=== PATIENT | female | born 1955 | race Caucasian/White ===

== ENCOUNTER 2023-07-25 15:09 | Outpatient (CLI) | payer MEDICARE, SELFPAY ==
--- NOTE | ~2023-07-25 | US_ITS ---
EXAMINATION: US carotid duplex BI DATE: 07/25/2023 15:51 INDICATION: Paresthesias of skin. TECHNIQUE: Grayscale, color Doppler, and pulsed Doppler images of the cervical carotid arteries were obtained. The degree of vessel stenosis is placed in one of the following categories: normal, <50%, 5 0-69%, >=70% but less than near-occlusion, near-occlusion, or total occlusion. Note that percent sten osis relative to normal distal artery lumen diameter is indirectly measured from velocity measurement s as described by Mir, et al. Radiology 2003; 229:340-346. COMPARISON: None. FINDINGS: RIGHT: The right common carotid artery (CCA) peak systolic velocity (PSV) is 83 cm/s. The right internal car otid artery (ICA) PSV is 71 cm/s. The right ICA end-diastolic velocity (EDV) is 35 cm/s. The right IC A/CCA PSV ratio is 0.9. Grayscale and color Doppler images yield an estimate of <50% diameter reducti on from plaque in the ICA. There is antegrade flow in the right vertebral artery. LEFT: The left CCA PSV is 94 cm/s. The left ICA PSV is 66 cm/s. The left ICA EDV is 27 cm/s. The left ICA/C CA PSV ratio is 0.7. Grayscale and color Doppler images yield an estimate of <50% diameter reduction from plaque in the ICA. There is antegrade flow in the left vertebral artery. IMPRESSION: 1. <50% stenosis in the right internal carotid artery. 2. <50% stenosis in the left internal carotid artery. Reviewed, dictated and finalized at location A. TUTOR
--- NOTE | ~2023-07-25 | US_ITS ---
EXAMINATION: US thyroid DATE: 07/25/2023 15:50 INDICATION: Nontoxic goiter TECHNIQUE: Multiple ultrasound images of the thyroid were obtained. COMPARISON: None. FINDINGS: The right thyroid lobe measures 5.0 x 1.5 x 1.7 cm. The left thyroid lobe measures 3.9 x 1.0 x 1.6 c m. 6 mm wider than tall solid hypoechoic nodule with smooth margins and without echogenic foci (TI-R ADS 4, moderately suspicious , FNA if >=1.5 cm, annual followup is >=1 cm) in the deep right thyroid lobe. There are couple additional 2-3 mm solid wider than tall hypoechoic nodules with smooth margins and with tiny internal echogenic foci (TI-RADS 5, highly suspicious , FNA if >=1.0 cm, annual follow up is >0.5 cm) in the superior right thyroid lobe and at the left side of the thyroid isthmus. There is normal echotexture, echogenicity and vascular flow throughout the remainder of the thyroid gland. IMPRESSION: 1. A few subcentimeter bilateral thyroid nodules none of which meet threshold criteria for either bio psy or ultrasound follow-up. Recommend clinical follow-up with repeat imaging if there are changes on physical exam. Reviewed, dictated and finalized at location A. ER IMPRESSION: 1. A few subcentimeter bilateral thyroid nodules none of which meet threshold c riteria for either biopsy or ultrasound follow-up. Recommend clinical follow-up with repeat imaging if there are changes on physical exam.
== END 2023-07-25 15:10 | disposition home or self-care (01) ==
LOC: ANHIMG 15:10
PROVIDERS: PCP Family Medicine; Visit Provider Nurse Practitioner Family
DX: E04.9 Nontoxic goiter, unspecified (principal); R51.9 Headache, unspecified; R20.2 Paresthesia of skin; Z82.3 Family history of stroke; E04.2 Nontoxic multinodular goiter; I65.23 Occlusion and stenosis of bilateral carotid arteries
CPT/HCPCS: 76536; 93880

== ENCOUNTER 2024-03-03 17:58 | Emergency (ER) | payer MEDICARE, SELFPAY ==
--- NOTE | 2024-03-03 18:19 | ED.URI ---
HPI - URI/Sore Throat General Chief Complaint: Upper Respiratory Infection Stated Complaint: Headache/Sore Throat/ fever/ body ache Time Seen by Provider: 03/03/24 18:56 Source: patient and RN notes reviewed Mode of arrival: ambulatory Limitations: no limitations History of Present Illness HPI Narrative: 69-year-old female presents with concern for 3 day history of headache, fever, sore throat, hoarse voice, cough, ear pain, fatigue. Reports her primary care doctor sent her benzonatate which she has been taking. She denies known sick contacts MD elicited complaint: cough and sore throat Related Data Home Medications Medication Instructions Recorded Confirmed valacyclovir 1 gram tablet 1,000 mg PO DAILY PRN fever 07/09/23 03/03/24 blisters Allergies Allergy/AdvReac Type Severity Reaction Status Date / Time sulfamethoxazole Allergy Unknown questionabl Verified 03/03/24 18:33 e trimethoprim Allergy Unknown questionabl Verified 03/03/24 18:33 e tramadol AdvReac Severe TONGUE Verified 03/03/24 18:33 SWELLING Review of Systems Review of Systems: CONSTITUTIONAL: Reports malaise, fatigue, fever. EYES: Denies visual changes, redness, or discharge. ENT: Reports rhinorrhea, congestion, otalgia and hoarse voice, sore throat. CARDIOVASCULAR: Denies chest pain, palpitations, or edema. RESPIRATORY: Reports cough. Denies dyspnea. GASTROINTESTINAL: Denies abdominal pain, nausea, vomiting, diarrhea SKIN: Denies rash or itching. MUSCULOSKELETAL: Denies myalgia. NEUROLOGIC: Reports headache. All systems reviewed & are unremarkable except as noted in HPI and below PMFSH Surgical History Surgical History H/O left mastectomy Family History Family History Father No problems noted. Mother No problems noted. Sibling No problems noted. Social History Social History Smoking status: Never smoker Second hand tobacco smoke exposure: No Alcohol intake: current Substance use: never Lack of Transportation: No Lack of Food: Never True Current Housing: I Have Housing Concerned About Future Housing: No Difficulty Paying Gas/Electric Bills: No Difficulty Paying for Meds: No Currently Unemployed: No Education: Associate Degree Difficulty w/ Childcare or Family Care: No Comments At time of signature, agree with nursing past medical, surgical, social and family history. There is no relevant family history pertinent to the presenting complaint Exam Narrative: GENERAL: Nontoxic-appearing, well-nourished, and in no acute distress. HEAD: Normocephalic EYES: PERRLA, conjunctivae clear ENT: Nares clear. Mucous membranes moist. TM pearly riley with dull light reflex bilaterally; no tragal tenderness. Oropharynx not erythematous without lesions. Tonsils not enlarged and without exudate, no drooling, no trismus, uvula midline. Hoarse voice noted NECK: Supple. No lymphadenopathy CHEST: Clear to auscultation, breath sounds equal. No wheezing, rhonchi, rales, or stridor. No respiratory distress, speaks in full sentences. Cough noted HEART: Regular rate and rhythm. No murmur heard. SKIN: Warm, dry, no rash. NEURO: Alert and oriented x3. PSYCH: Normal mood and affect Course Course Emergency Course: Patient is aware of diagnosis, understands and agrees to treatment plan. Anticipatory guidance given. Patient agrees to follow-up as directed and is aware of reasons to seek care at the emergency department. Portions of this record may have been created with voice recognition software Level of Care: Express Care Visit Vital Signs Vital signs: Reviewed. MDM - URI/Sore Throat MDM Narrative Medical decision making narrative: Differential diagnosis considered: Hughes virus, strep pharyngitis, allergic rhiniti
[2024-03-03 18:35] VITALS: BP 125/69; PULSE 91; RESP 16; TEMP 38.7; O2SAT 100
[2024-03-03 18:56] LABS: EDINFLUASCREEN Negative; EDINFLUBSCREEN Negative; EDSTREPNEGPOS1 Negative
== END 2024-03-03 19:10 | disposition home or self-care (01) ==
PROVIDERS: Emergency Provider Nurse Practitioner; PCP Family Medicine
DX: J06.9 Acute upper respiratory infection, unspecified (principal); R05.9 Cough, unspecified; R09.89 Other specified symptoms and signs involving the circulatory and respiratory systems; Z20.822 Contact with and (suspected) exposure to COVID-19; Z90.12 Acquired absence of left breast and nipple
CPT/HCPCS: 87081; 87426; 87804; 87880; 99213; G0463

== ENCOUNTER 2025-01-29 08:04 | Emergency (ER) | payer MEDICARE, SELFPAY ==
--- OUTSIDE RECORDS SUMMARY | 2025-01-29 08:08 | XMS_ITS | Encounter Summary ---
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 Name Role Phone Unavailable Primary Care Provider Unavailabl e Reason for Visit * Reason Onset Date Comments MEDICATION REFILL 10/25/2022 Encounter Details Date Type Department Care Team (Late st Contact Info) Description 10/25/2022 Refill [facility] [address] [facility] [place] [id number] Katherin Cruz MD [address] [facility] [address] [place] [address] MEDICATION REFILL Social History Tobacco Use Types Packs/Day Years Used Date Smoking Tobacco: Never Assessed Comments Unknown Sex and Gender Information Value Date Recorded Sex Assigned at Not on file Legal Sex Female 10:40 AM CDT Gender Identity Not on file Sexual Orientation Not on file documented as of this encounter Miscellaneous Notes * Telephone Encounter - Mark Garvin MA - 10/25/2022 10:16 AM CDT LV Na NV Na RTC Na Mark Garvin MA documented in this encounter Plan of Treatment Not on file documented as of this encounter Visit Diagnoses Not on filedocumented in this encounter
--- OUTSIDE RECORDS SUMMARY | 2025-01-29 08:08 | XMS_ITS | Encounter Summary ---
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 [address] [place] [address] Social History Tobacco Use Types Packs/Day Years Used Date Smoking Tobacco: Never Assessed Comments Unknown Sex and Gender Information Value Date Recorded Sex Assigned at Not on file Legal Sex Female 10:40 AM CDT Gender Identity Not on file Sexual Orientation Not on file documented as of this encounter Plan of Treatment Not on file documented as of this encounter Procedures Procedure Name Priority Date/Time Associated Diagnosis Comments DERMATOPATHOLOGY Routine 06/24/2019 12:0 0 AM [employer] INSPECTOR documented in this encounter Results * DERMATOPATHOLOGY (06/24/2019 12:00 AM [employer] INSPECTOR) Case Report Dermatopathology Report Case: [id number] Authorizing Provider: Katherin Cruz MD Collected: 06/24/2019 12:00 AM Ordering Location: [facility] Received: 06/24/2019 11:04 AM Pathologist: Karsten Francis MD Specimen: Skin, left shoulder 9 1:45 PM [employer] INSPECTOR DERMATOPATHOLOGY LABORATORY Final Diagnosis Specimen A. SKIN, left shoulder: LICHEN PLANUS-LIKE KERATOSIS (BENIGN LICHENOID KERATOSIS) (L82.1) POST-INFLAMMATORY PIGMENT ALTERATION (L81.9) 9 1:45 PM [employer] INSPECTOR DERMATOPATHOLOGY LABORATORY at [address]5 [employer] Clinical History R/O BCC, melanoma, LPLK. [place] brown papule. 1:45 PM [employer]ERS INSPECTOR DERMATOPATHOLOGY LABORATORY Gross Description Specimen A: Received is one formalin filled container labeled with the patient's name and designated left shoulder. The specimen consists of a shave measuring [id number]. Jar 0. 1:45 PM [facility] DERMAT[facility]ORATORY Microscopic Description Specimen A. SKIN, left shoulder: The epidermis is mildly acanthotic. There is a lichenoid infiltrate with vacuolar changes of basilar keratinocytes and scattered necrotic keratinocytes. Sections show abundant melanin within melanophages around the superficial vascular plexus. 1:45 PM [employer] INSPECTOR DERMATOPATHOLOGY LABORATORY Disclaimer An external and internal positive and negative controls are appropriate for the histochemical, immunohistochemical and immunofluorescence stain(s) in this case (if any), except where stated explicitly. The performance characteristics of the stain(s) cited in this report were developed and its performance characteristic determined by the Dermatopathology Laboratory at [facility], directed by Dr. Kena Francis. These tests need not be, and therefore are not, approved by the [place] Food and Drug Administration. The tests are used for clinical purposes. Billing Codes Specimen Charges Stain Charges 92209 1 1:45 PM [employer] INSPECTOR DERMATOPATHOLOGY LABORATORY Embedded Images 1:45 PM [employer] INSPECTOR DERMATOPATHOLOGY LABORATORY Pathology/Cytolog y TISSUE SPECIMEN FROM SKIN / Unknown 06/24/2019 06/24/2019 11:04 AM [employer] INSPECTOR us Katherin Cruz MD LAB - PATHOLOGY/CYTOLOGY ORD ERABLES Final Result DERMATOPATHOLOGY LABORATORY [facility] - Department of Dermatology [address] [place] [address], [address] [place] [address], [facility] [phone] documented in this encounter Visit Diagnoses Not on filedocumented in this encounter
--- OUTSIDE RECORDS SUMMARY | 2025-01-29 08:08 | XMS_ITS | Clinical Summary ---
Author Organization [facility] Address [address] [place] [address] Care Team Providers Care Multimedia Assistant Name Role Phone Marcial Ford MD Primary Care Provider [phone] Angelique Tabares MD Unavailable [phone] Allergies Active Allergy Reactions Criticality Noted Date Comments Sulfamethoxazole-Trimet hoprim Swelling,Vomiting Medium 06/10/2012 In throat and lips Medications calcium carbonate-vitam in D3 1,250mg (500mg elemental) - 5 mcg (200 units) per tablet Take 1 tablet by mouth every morning supplement Active multivitamin tabletIndicatio ns:Vitamin Deficiency Prevention Take 1 tablet by mouth every morning Active valACYclovir (VALTREX) 1 gram tablet TAKE 2 TABLETS BY MOUTH TWICE DAILY AT THE FIRST SIGN 3 Active meloxicam (MOBIC) 7.5 mg tabletIndicatio ns:Osteoarthrit is Take 1 tablet (7.5 mg total) by mouth 2 (two) times a day with meals 60 tablet 1 3 Active omeprazole (PriLOSEC) 20 mg capsule Take 1 capsule (20 mg total) by mouth daily 4 Active rosuvastatin (CRESTOR) 20 mg tablet Take 1 tablet (20 mg total) by mouth daily 4 Active Active Problems Problem Noted Date Diagnosed Date History of breast cancer 05/16/2020 Overview (05/16/2020): Added automatically from request for surgery [id number] History of bilateral breast implants 05/16/2020 Overview (05/16/2020): Added automatically from request for surgery [id number] Deformity of breast 05/16/2020 Overview (05/16/2020): Added automatically from request for surgery [id number] Osteopenia 02/01/2020 Enthesopathy of wrist and carpus 09/21/2019 Pulmonary nodule/lesion, solitary 09/21/2019 Other synovitis and tenosynovitis, unspecified h and 09/21/2019 Blood in urine 09/21/2019 Bone pain 09/21/2019 Chest wall tenderness 09/21/2019 Rib pain 09/21/2019 Acute meniscal tear of left knee 09/21/2019 Cyst of breast 09/21/2019 Disorder of shoulder 09/21/2019 Radial styloid tenosynovitis 09/21/2019 Epigastric pain 09/21/2019 Furuncle 09/21/2019 Hand joint pain 09/21/2019 Localized, primary osteoarthritis 09/21/2019 Microscopic hematuria 09/21/2019 Motion sickness 09/21/2019 Pain 09/21/2019 Chemotherapy follow-up examination 09/21/2019 Postoperative follow-up 09/21/2019 Radiotherapy follow-up 09/21/2019 Sinusitis 09/21/2019 Thickening of pleura 09/21/2019 Chest discomfort 07/29/2018 Well woman exam with routine gynecological exam 07/29/2018 Encounter for gynecological examination without abnormal finding 06/30/2018 History of malignant neoplasm of breast 03/21/20 18 Pain in lower limb 02/18/2017 Tinnitus 09/24/2016 S/P breast reconstruction 05/30/2015 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 05/28/2014 Malignant neoplasm of breast 06/11/2012 Carcinoma in situ of breast 03/31/2012 History of ductal carcinoma in situ of breast Encounters Date Type Department Care Team Description 01/25/2025 3:30 PM CDT Ancillary Procedure [facility] Obstetrical Gynecology [address] [place] [id number] Pelvic pain 01/25/2025 Results Follow-Up [facility] ([facility]) [address] [place] [id number] Zully Richards RN Surgical pathology 01/22/2025 10:14 AM CDT - 01/22/2025 11:59 PM CDT Hospital Encounter [facility] ([facility]) [address] [place] [address] Abnormal MRI, breast; History of breast cancer Discharge Disposition: Discharge to home or self care 01/22/2025 8:09 AM CDT - 01/22/2025 11:59 PM CDT Hospital Encounter [facility] ([facility]) [address] [place] [address] Abnormal MRI, breast; History of breast cancer Discharge Disposition: Discharge to home or self care 01/21/2025 Telephone [facility] ([facility]) [address] [place] [phone] Estephania Aguirre, BEV 01/08/2025 Telephone [facility] ([facility]) [address] [place] [address] Estephania Aguirre, BEV 01/08/[address] [facility] Surgery [address] [place] [address] [address] [place] [address] Kaylyn Russell NP Breast Screening MRI results 01/06/2025 6:38 AM CDT - 01/06/2025 11:59 PM CDT Hospital Encounter [facility] ([facility]) [address] [place] [address] Encounter for screening mammogram for malignant neoplasm of breast; At high risk for breast cancer Discharge Disposition: Discharge to home or self care 01/04/2025 Orders Only [facility] Obstetrical Gynecology [address] [place] [address] Angelique Tabares MD Pelvic pain (Primary Dx) 12/22/2024 Telephone [facility] Obstetrical Gynecology [address] [place] [address] Angelique Tabares MD from Last 3 Months Immunizations Immunization Administration Dates Next Due Influenza, Quadrivalent, Spl it, Intramuscular 05/27/2018,05/27/2018,05/22/2017,05/22 Influenza, Trivalent, IM (MDV) 5,04/29/2015,06/28/2014,07/15,07/15/2013 Influenza, Trivalent, Preser vative Free, Intramuscular 05/21/2017 Tdap 02/18/2019,02/18/2019 ZOSTER Recombinant 08/18/2018,04/28/2018 Surgical History Surgery Date Site/Laterality Comments MASTECTOMY Left SECTION, LOW TRANSVERSE TONSILLECTOMY BREAST SURGERY BREAST BIOPSY 01/22/2025 Right Medical History Medical History Date Comments Breast cancer (HCC) Gastric reflux GERD (gastroesophageal reflux disease) Headache PONV (postoperative nausea and vomiting) Osteopenia Family History Medical History Relation Name Comments Stroke Father No Known Problems Mother Breast cancer Sister Adenocarcinoma of breast - (Added by TW Conv) Cancer Sister Cancer Son Relation Name Status Comments Father Mother Sister Alive Son Social History Tobacco Use Types Packs/Day Years Used Date Smoking Tobacco: Never Smokeless Tobacco: Never Tobacco Cessation:Counseling Given: Not Answered Alcohol Use Standard Drinks/Week Comments Not Currently 0 (1 standard drink = 0.6 oz pur e alcohol) AUDIT-C Answer Date Recorded Q1: How often do you have a drink containing alc ohol? Monthly or less 04/03/2021 Q2: How many drinks containi ng alcohol do you have on a typical day when you are drinking? 1 or 2 04/03/2021 Frequency of Binge Drinking Not on file 03/16 Exercise Vital Sign Answer Date Recorde d On average, how many days pe r week do you engage in moderate to strenuous exercise (like a brisk walk)? 2 days 02/01/2020 On average, how many minutes do you engage in exercise at this level? 60 min 02/01/2020 Comments No Sex and Gender Information Value Date Recorded Sex Assigned at Not on file Legal Sex Female 8:29 PM CHECKOUT OPERATOR Gender Identity Female 05/02/2020 5:05 PM CDT Sexual Orientation Straight 05/02/2020 5: 05 PM CDT Obstetrics History Para Term AB IAB SAB Ectopic Multiple Livin g Live Births 3 3 3 3 3 Date Outcome GA Total Labor Labor/2nd/3rd Weight Sex Type Anes PTL Michelle A1 A5 Name Clin 1985 Term 2.807 kg (6 lb 3 oz) F CS-LT ranv Living Complications:Breech 1987 Term 2.92 kg (6 lb 7 oz) M CS-LT ranv Living Complications:Breech 1990 Term 3.033 kg (6 lb 11 oz) F CS-LT ranv Living Complications:None Last Filed Vital Signs Vital Sign Reading Time Taken Comments Blood Pressure 142/80 09/28/2022 2:12 PM CDT Pulse 93 06/17/2020 8:30 AM CHECKOUT OPERATOR Temperature 36.2 C (97.1 F) 07/18/2020 11:40 AM CHECKOUT OPERATOR Respiratory Rate 18 06/17/2020 8:30 AM CHECKOUT OPERATOR Oxygen Saturation 98% 06/17/2020 8:30 AM CHECKOUT OPERATOR Inhaled Oxygen Concentration - - Weight 56.2 kg (124 lb) 01/22/2025 8:17 AM CDT Height 162.6 cm (5' 4) 01/22/2025 8:17 AM CDT Body Mass Index 21.28 01/22/2025 8:17 AM CDT Plan of Treatment Health Maintenance Due Date Last Done Comments Colon Cancer Screening-Colonoscopy 1955 Depression Screening 1955 Hepatitis C Screening 1955 Hepatitis B Screening 02/15/1974 Pneumococcal vaccine 65+ (1 of 1 - PCV) 02/15/2006 Fall Risk Assessment 06/17/2021 06/17/2020 Well Visit 65+ 09/29/2023 09/28/2022, 03/16, 02/01/2020, Additional history exists Osteoporosis Screening-Bone Density Scan 10/05/2024 10/05/2022, 05/11/2020, 08/22/2018, Additional history exists Influenza Vaccine (#1) 2025 8, 05/27/2018, 05/22/2017, Additional history exists Breast Cancer Screening-Mammogram 06/24/2025 06/24/2024, 06/10/2023, 05/29/2022, Additional history exists DTaP/Tdap/Td Vaccine (3 - Td or Tdap) 02/18/2029 02/18/2019, 02/18/2019 Zoster Vaccine Completed 08/18/2018, 04/28/2018 Medical Devices Implanted Type Area Consulting Psychologist Device Identifier Shelf Expiration Date Model / Serial / Lot [employer] Ssm-310 Natrelle Inspira Smooth Shell Surface Moderate Profile Implant Latex Free - [id number] - [id number] Implanted:Qty: 1 on 06/17/2020 by Krystle Corea MD at [facility] Breast Left: Breast [employer] 10/30/2023 SSM-310 / [id number] / Rt Shoulder Pinning Implanted:01/14 (Quantity not on file) Right: Shoulder [employer] Trimark Mri Guided Rigid Deployment Device Cork Marker Breast Trimark Td 13-Mr - [id number] Implanted:Qty: 1 on 01/22/2025 at [facility] Right: Breast [employer] [id number] 02/11/2026 TRIMARK TD 13-MR / / [id number] Explanted Type Area Consulting Psychologist Device Identifier Shelf Expiration Date Model / Serial / Lot Breast Explanted:Qty: 1 on 06/17/2020 by Krystle Corea MD at [facility] Breast Left: Breast [employer] / [id number] / [id number] Procedures Procedure Name Priority Date/Time Associated Diagnosis Comments CAMERON POST CLIP PLACEMENT RIGHT Schedule Routine, Read Routine (OP Routine) 01/22/2025 10:28 AM CDT Abnormal MRI, breast History of breast cancer MRI GUIDED BREAST BIOPSY RIGHT Schedule Routine, Read Routine (OP Routine) 01/22/2025 10:06 AM CDT Abnormal MRI, breast History of breast cancer SURGICAL PATHOLOGY Routine 01/22/2025 9:46 AM CDT Abnormal MRI, breast History of breast cancer MRI BREAST BILATERAL W WO CONTRAST Schedule Routine, Read Routine (OP Routine) 01/06/2025 7:39 AM CDT Encounter for screening mammogram for malignant neoplasm of breast At high risk for breast cancer SCREENING MAMMOGRAM RIGHT W CAMERON UNILATERAL ONLY Schedule Routine, Read Routine (OP Routine) 06/24/2024 11:41 AM CHECKOUT OPERATOR Encounter for screening mammogram for malignant neoplasm of breast History of malignant neoplasm of breast DEXA AXIAL SKELETON BONE DENSITY 1 OR MORE SITES Schedule Routine, Read Routine (OP Routine) 10/05/2022 3:31 PM CDT Osteopenia, unspecified location Unspecified menopausal and perimenopausal disorder from Last 3 Months or Most Recently Relevant to Health Maintenance Results * Cameron Post Clip Placement Right (01/22/2025 10:28 AM CDT) Anatomical Region Laterality Modality Breast Right Mammography 01/22/2025 2:15 PM CDT Addenda Addendum by Mandi Nieves MD on 01/25/2025 3:45 PM CDT ADDENDUM: Pathology from biopsy of the right breast showed breast tissue with prominent vasculature and organizing hemorrhage; please refer to pathology report for details. Pathology is benign and concordant. Normal interval screening mammography is recommended. Results and recommendations will be discussed with the patient by [facility] or referring provider staff and will be separately documented in the medical record. Electronically signed by: Mandi Nieves M.D. Impressions 01/22/2025 3:39 PM CDT Successful vacuum-assisted core needle biopsy of RIGHT breast utilizing MRI guidance. Pathology is pending. ASSESSMENT: Post Procedure Mammograms for Marker Placement Dictated by: Yariel Sylvester M.D. The radiology attending physician has personally reviewed this study, and had reviewed and/or edited this written report and agrees with it. Electronically signed by: Mandi Nieves M.D. Narrative 01/22/2025 3:39 PM CDT EXAMINATION: RIGHT BREAST VACUUM-ASSISTED CORE BIOPSY UTILIZING MRI GUIDANCE, ONE LESION/SITE; PLACEMENT OF A BIOPSY TISSUE MARKER CLIP; AND RIGHT UNILATERAL FULL FIELD DIGITAL POST-PROCEDURE MAMMOGRAM WITH TOMOSYNTHESIS HISTORY: Abnormal breast MRI. 69-year-old woman with history of left-sided breast cancer status post mastectomy with RIGHT breast non-mass enhancement for which MRI guided biopsy is recommended. MR guided core needle biopsy is requested to evaluate for malignancy. COMPARISON: Breast MRI dated 01/06/2025 CONTRAST: Gadoterate meglumine, 10 ml BREAST PARENCHYMAL COMPOSITION: There are scattered areas of fibroglandular density. PROCEDURE AND FINDINGS: The risks, potential benefits, and reasonable alternatives of the procedure were discussed with the patient. Her questions were answered, and written informed consent was obtained. The patient was placed in the prone position on the MRI table. After sterile preparation of the skin, the breast was placed in a compression grid. Magnetic resonance imaging was performed with a dedicated breast imaging coil before and after intravenous administration of gadolinium, from which subtracted images were obtained. 1% lidocaine and 2% lidocaine with epinephrine were utilized for local anesthesia and hemostasis about the biopsy site. A small skin incision was made with a #11 scalpel blade. A 9 gauge Suros introducer needle and sheath were then advanced through the skin incision to the target lesion from a lateral approach utilizing MR guidance. Additional magnetic resonance images were obtained to confirm appropriate sheath positioning. Subsequently, a 9 gauge Suros vacuum assisted biopsy needle was advanced through the sheath and a total of 6 tissue cores were obtained. Post biopsy magnetic resonance images confirm biopsy site changes in the expected position. A TriMark cork-shaped tissue marker clip was then placed at the biopsy site. The sheath was removed and hemostasis was achieved. Dermabond and an ice pack were applied. There was no evidence of significant immediate complication. The patient was given verbal as well as written post procedural instructions prior to release from the department. The tissue cores were submitted in formalin to surgical pathology for histologic analysis. A RIGHT unilateral two-view full field digital mammogram with digital breast tomosynthesis was obtained post procedure and this demonstrates that the tissue marker clip is in the expected position. The attending radiologist, Dr. Mandi Nieves M.D., was present throughout the entire procedure. Dr. Nielson (breast imaging fellow) and Dr. Yariel Sylvester MD (diagnostic student affairs vice president) also participated in this examination. us Kaylyn Russell PSYCHOLOGY PROFESSOR IMG MAMMO PROCEDURES Ed ited Result - Final * MRI Guided Breast Biopsy Right (01/22/2025 10:06 AM CDT) Anatomical Region Laterality Modality Breast Right Magnetic Resonan ce 01/22/2025 1:48 PM CDT Addenda Addendum by Mandi Nieves MD on 01/25/2025 3:45 PM CDT ADDENDUM: Pathology from biopsy of the right breast showed breast tissue with prominent vasculature and organizing hemorrhage; please refer to pathology report for details. Pathology is benign and concordant. Normal interval screening mammography is recommended. Results and recommendations will be discussed with the patient by [facility] or referring provider staff and will be separately documented in the medical record. Electronically signed by: Mandi Nieves M.D. Impressions 01/22/2025 3:39 PM CDT Successful vacuum-assisted core needle biopsy of RIGHT breast utilizing MRI guidance. Pathology is pending. ASSESSMENT: Post Procedure Mammograms for Marker Placement Dictated by: Yariel Sylvester M.D. The radiology attending physician has personally reviewed this study, and had reviewed and/or edited this written report and agrees with it. Electronically signed by: Mandi Nieves M.D. Narrative 01/22/2025 3:39 PM CDT EXAMINATION: RIGHT BREAST VACUUM-ASSISTED CORE BIOPSY UTILIZING MRI GUIDANCE, ONE LESION/SITE; PLACEMENT OF A BIOPSY TISSUE MARKER CLIP; AND RIGHT UNILATERAL FULL FIELD DIGITAL POST-PROCEDURE MAMMOGRAM WITH TOMOSYNTHESIS HISTORY: Abnormal breast MRI. 69-year-old woman with history of left-sided breast cancer status post mastectomy with RIGHT breast non-mass enhancement for which MRI guided biopsy is recommended. MR guided core needle biopsy is requested to evaluate for malignancy. COMPARISON: Breast MRI dated 01/06/2025 CONTRAST: Gadoterate meglumine, 10 ml BREAST PARENCHYMAL COMPOSITION: There are scattered areas of fibroglandular density. PROCEDURE AND FINDINGS: The risks, potential benefits, and reasonable alternatives of the procedure were discussed with the patient. Her questions were answered, and written informed consent was obtained. The patient was placed in the prone position on the MRI table. After sterile preparation of the skin, the breast was placed in a compression grid. Magnetic resonance imaging was performed with a dedicated breast imaging coil before and after intravenous administration of gadolinium, from which subtracted images were obtained. 1% lidocaine and 2% lidocaine with epinephrine were utilized for local anesthesia and hemostasis about the biopsy site. A small skin incision was made with a #11 scalpel blade. A 9 gauge Suros introducer needle and sheath were then advanced through the skin incision to the target lesion from a lateral approach utilizing MR guidance. Additional magnetic resonance images were obtained to confirm appropriate sheath positioning. Subsequently, a 9 gauge Suros vacuum assisted biopsy needle was advanced through the sheath and a total of 6 tissue cores were obtained. Post biopsy magnetic resonance images confirm biopsy site changes in the expected position. A TriMark cork-shaped tissue marker clip was then placed at the biopsy site. The sheath was removed and hemostasis was achieved. Dermabond and an ice pack were applied. There was no evidence of significant immediate complication. The patient was given verbal as well as written post procedural instructions prior to release from the department. The tissue cores were submitted in formalin to surgical pathology for histologic analysis. A RIGHT unilateral two-view full field digital mammogram with digital breast tomosynthesis was obtained post procedure and this demonstrates that the tissue marker clip is in the expected position. The attending radiologist, Dr. Mandi Nieves M.D., was present throughout the entire procedure. Dr. Nielson (breast imaging fellow) and Dr. Yariel Sylvester MD (diagnostic student affairs vice president) also participated in this examination. Kaylyn Russell PSYCHOLOGY PROFESSOR [facility] MRI PROCEDURES Edit ed Result - Final * Surgical pathology (01/22/2025 9:46 AM CDT) Tissue (Breast biopsy, needle core) 01/22/2025 9:46 AM CDT Narrative PATHOLOGY [facility] - 01/25/2025 1:01 PM CDT EPIC results best viewed via link to PDF [facility] Delia Mota Laboratory of Surgical Pathology [place] [address] Note to Patients: This report may contain a detailed description of human tissue sent by a health care provider to the laboratory for pathologic evaluation. The content of this report is essential for diagnosis and may provide important critical findings. This information may be unfamiliar to patients to review without a medical professional present. It is advised that the patient review this report in the presence of a health care provider who can answer questions and explain the details. SURGICAL PATHOLOGY REPORT FINAL Patient Name: ANA LUISA PAINTING Gender: F : 1955 (Age: 69) Address: [address] [place] [id number] Hospital #: [id number] Taken:01/22/2025 Received:01/22/2025 Reported: 01/25/2025 Patient Type: [facility] Ancillary Service: UNKNOWN Location: Physician(s): CHINA Lewis Marcial Ping Perla M.D. Diagnosis: Breast, right, central upper, MRI-guided biopsy - Breast tissue with prominent vasculature and organizing hemorrhage - No atypical or malignant findings [facility]/01/24/2025 11:54 By this signature, I attest that the above diagnosis is based upon my personal examination of the slides(and/or other material indicated in the diagnosis). Ko Ford M.D. Report Electronically Reviewed and Signed Out By Ko Ford M.D. 01/25/2025 13:01:33 Marcella Triana M.D. History: The patient is a 69-year-old woman presenting for abnormal MRI, breast and history of breast cancer. Operative procedure: Right breast MRI biopsy BI-RADS 4B. Specimen(s) Received: A: Right breast MRI biopsy right central upper NME BIRAD 4B Gross Description: Received in formalin, labeled with the patient s identifiers and right breast MRI biopsy right central upper NME BI-RADS 4B are 12 yellow-red cores of fibrofatty tissue measuring 1.2 to 2.4 cm in length by 0.5 cm in diameter. Labeled A1 to A6. Jar 0. Placed in formalin immediately after collection. Total fixation time= 8.0 hours. [facility]/01/22/2025 11:50 PA(s): Sheila Garcia By this signature, I attest that the above diagnosis is based upon my personal examination of the slides(and/or other material). Addenda/Procedures The performance characteristics of some immunohistochemical stains, fluorescence in-situ hybridization tests and immunophenotyping by flow cytometry cited in this report (if any) were determined by the Surgical Pathology and Flow Cytometry Departments at [facility] as part of an ongoing quality assurance associate program and in compliance with federally mandated regulations drawn from the Clinical Laboratory Improvement Act of 1988 (CLIA '88). Some of these tests rely on the use of analyte specific reagents and are subject to specific labeling requirements by the US Food and Drug Administration. Such diagnostic tests may only be performed in a facility that is certified by the Department of Health and Human Services as a high complexity laboratory under CLIA '88. The FDA has determined that such clearance or approval is not necessary. This test is used for clinical purposes. It should not be regarded as investigational or for research. Nevertheless, federal rules concerning the medical use of analyte specific reagents require that the following disclaimer be attached to the report: This test was developed and its performance characteristics determined by the Surgical Pathology and Flow Cytometry Departments of [facility]. It has not been cleared or approved by the U. S. Food and Drug Administration. IMAGES AND SCANNED DOCUMENTS, IF INCLUDED, ONLY VIEWABLE IN PDF VERSION OF REPORT Kaylyn Russell NP LAB PATHOLOGY ORDERABLE S Final Result PATHOLOGY [facility] 3rd Floor [place], [place] [phone] * (ABNORMAL) MRI Breast Bilateral W WO Contrast (01/06/2025 7:39 AM CDT) Anatomical Region Laterality Modality Breast Bilateral Magnetic Resonan ce 01/06/2025 11:5 6 AM CDT Impressions 01/06/2025 2:24 PM CDT 1. Clumped mass and non-mass enhancement throughout the right breast spanning approximately 5 cm in craniocaudal dimension. The findings are of moderate suspicion for malignancy and MRI guided biopsy is recommended (targeting the most masslike 1.6 cm area in the upper slightly inner right breast). 2. Postsurgical changes of left mastectomy with intact silicone implant reconstruction. The method of initial detection of finding was screening MRI (Smri). OVERALL FINAL ASSESSMENT: SUSPICIOUS. BI-RADS Category 4B: Moderate suspicion for malignancy. RECOMMENDATION: MRI-guided biopsy of right breast clumped mass and non-mass enhancement, targeting the most masslike area in the upper slightly inner right breast (F- 2.1). Dictated by: Mattie Tejada M.D. The radiology attending physician has personally reviewed this study, and had reviewed and/or edited this written report and agrees with it. Electronically signed by: Geni Baptiste M.D. Narrative 01/06/2025 2:24 PM CDT EXAMINATION: 1. MRI EXAMINATION OF THE BREASTS WITH AND WITHOUT CONTRAST 2. 3D POST PROCESSING ON A DEDICATED 3D WORKSTATION HISTORY: High-risk Screening. 69-year-old woman with history of left breast ductal carcinoma in situ status post left mastectomy in 2012. She also had right excisional biopsy for papilloma in 2012. TECHNIQUE: MRI examination of the breasts per breast tumor protocol with and without gadolinium contrast. A dedicated breast imaging coil was used. The images were transferred to a breast CAD system for 3D post processing and contrast kinetics analysis. CONTRAST: Gadoterate meglumine, 10 ml COMPARISON: Multiple prior breast MRI, most recent dated 124. 06/24/2024 bilateral mammogram. BREAST COMPOSITION: Scattered fibroglandular tissue BACKGROUND PARENCHYMAL ENHANCEMENT: Mild FINDINGS: LEFT: There are postsurgical changes of left mastectomy with intact silicone implant reconstruction. There is no suspicious enhancement in the reconstructed left breast. RIGHT: There is clumped mass and non-mass enhancement throughout the right breast spanning approximately 5.0 cm in craniocaudal dimension. The most masslike component is in the upper slightly inner right breast measuring approximately 1.2 cm anteroposterior by 1.6 cm transverse by 1.6 cm craniocaudal (F- 2.1). There are postsurgical changes of prior benign right breast excisional biopsy. No abnormally enlarged lymph nodes are identified in the visualized portions of either axilla. Negar Delgado NP IM MRI PROCEDURES Final Resul t * Screening Mammogram Right W Cameron Unilateral Only (06/24/2024 11:41 AM CHECKOUT OPERATOR) Anatomical Region Laterality Modality Breast Right Mammography Narrative 06/25/2024 11:39 AM CHECKOUT OPERATOR Mammogram Technique: Right Breast Digital Breast Tomosynthesis, Unilateral C-view 2D Screening mammogram. Views obtained: right craniocaudal and right mediolateral oblique. Computer Aided Detection was performed. Mammogram Findings: The present examination has been compared to prior imaging studies performed at [facility] on 05/23/2021, 05/29/2022 and 06/10/2023. There are scattered areas of fibroglandular density. There is no suspicious abnormality in the right breast. There are no significant changes from the prior study. Patient status post contralateral mastectomy for personal history of breast cancer. Impression: There is no mammographic evidence of malignancy. Annual screening mammography is recommended. OVERALL FINAL ASSESSMENT: BI-RADS CATEGORY 1: Negative. Procedure Note Geni Baptiste MD - 06/25/2024 Mammogram Technique: Right Breast Digital Breast Tomosynthesis, Unilateral C-view 2DScreening mammogram. Views obtained: right craniocaudal and right mediolateral oblique. Computer Aided Detection was performed. Mammogram Findings: The present examination has been compared to prior imaging studies performed at [facility] on 05/23/2021, 05/29/2022 and 06/10/2023. There are scattered areas of fibroglandular density. There is no suspicious abnormality in the right breast. There are no significant changes from the prior study. Patient status post contralateral mastectomy for personal history ofbreast cancer. Impression: There is no mammographic evidence of malignancy. Annual screening mammography is recommended. OVERALL FINAL ASSESSMENT: BI-RADS CATEGORY 1: Negative. Carol Douglas NP IMG MAMMO PROCEDURES Fin al Result * Dexa Axial Skeleton Bone Density 1 Or 2 Site (10/05/2022 3:31 PM CDT) Anatomical Region Laterality Modality Body N/A Mammography 10/06/2022 10:2 5 AM CDT Narrative 10/06/2022 10:26 AM CDT EXAM DESCRIPTION: DEXA AXIAL SKELETON BONE DENSITY 1 OR MORE SITES REASON FOR STUDY: 67 y/o year old F with given history of screening. Postmenopausal Consulting Psychologist/Model: MyEdu A (S/N [id number]) CLINICAL INFORMATION: Current height: 64 inches Maximum height: 64.5 inches Weight: 127 pounds Risk factors: Postmenopausal COMPARISON: None available FINDINGS: AP LUMBAR SPINE L1-L4: Total BMD is 0.826 g/cm2 T-score is -2.0 LEFT HIP: Total BMD is 0.802 g/cm2 T-score is -1.2 Femoral neck BMD is 0.730 g/cm2 T-score is -1.1 FRAX: 10 year risk for a major osteoporotic fracture is 7.8 %, 10 year risk for a hip fracture is 0.7 % IMPRESSION: Low Bone Mass. REFERENCE: Bone mineral density: Normal (T-score above or = -1.0) Low bone mass (T-score between -1.0 and -2.5) replaces the previously used term osteopenia Osteoporosis (T-score = or below -2.5) Medical evaluation for secondary causes of low bone mineral density may be appropriate. FRAX is a World Health Organization validated fracture risk assessment tool that calculates a person's 10 year probability of a major osteoporosis related fracture and hip fracture. According to the National Osteoporosis Foundation guidelines, postmenopausal women and men age 50 or older with low bone mass and a 10 year probability of a major osteoporosis related fracture = or greater than 20% or a 10 year probability of a hip fracture = or greater than 3% should be considered for treatment. For further information, including treatment recommendations, please refer to the 2013 ISCD Official Positions (http://www.iscd.org) and the NOF's Clinician's Guide to Prevention and Treatment of Osteoporosis (http://www.nof.org/professionals/clinical-guidelines) THIS IS AN ELECTRONICALLY VERIFIED FINAL REPORT 10/06/2022 10:26 AM - Electronically signed by Felipe Montana M.D. MF: [place] Report ID: [id number] Reading Location: [id number] [facility] Note Felipe Montana MD - 10/06/2022 EXAM DESCRIPTION: DEXA AXIAL SKELETON BONE DENSITY 1 OR MORE SITES REASON FOR STUDY: 67 y/o year old F with given history of screening. Postmenopausal Consulting Psychologist/Model: MyEdu A (S/N [id number]) CLINICAL INFORMATION: Current height: 64 inches Maximum height: 64.5 inches Weight: 127 pounds Risk factors: Postmenopausal COMPARISON: None available FINDINGS: AP LUMBAR SPINE L1-L4: Total BMD is 0.826 g/cm2 T-score is -2.0 LEFT HIP: Total BMD is 0.802 g/cm2 T-score is -1.2 Femoral neck BMD is 0.730 g/cm2 T-score is -1.1 FRAX: 10 year risk for a major osteoporotic fracture is 7.8 %, 10 year risk fora hip fracture is 0.7 % IMPRESSION: Low Bone Mass. REFERENCE: Bone mineral density: Normal (T-score above or = -1.0) Low bone mass (T-score between -1.0 and -2.5) replaces thepreviously used term osteopenia Osteoporosis (T-score = or below -2.5) Medical evaluation for secondary causes of low bone mineral density may be appropriate. FRAX is a World Health Organization validated fracture risk assessmenttool that calculates a person's 10 year probability of a major osteoporosisrelated fracture and hip fracture. According to the National OsteoporosisFoundation guidelines, postmenopausal women and men age 50 or older with low bonemass and a 10 year probability of a major osteoporosis related fracture = or greater than 20% or a 10 year probability of a hip fracture = or greaterthan 3% should be considered for treatment. For further information, including treatment recommendations, please referto the 2013 ISCD Official Positions (http://www.iscd.org) and the NOF's Clinician's Guide to Prevention and Treatment of Osteoporosis (http://www.nof.org/professionals/clinical-guidelines) THIS IS AN ELECTRONICALLY VERIFIED FINAL REPORT 10/06/2022 10:26 AM - Electronically signed by Felipe Montana M.D. MF: [place] Report ID: [id number] Reading Location: [place] [address] Angelique Tabares MD IM DXA PROCEDURES Final Result from Last 3 Months or Most Recently Relevant to Health Maintenance Insurance [facility] OPEN ACCESS MEDICARE AAR MEDICARE [facility] MEDICARE AARP Care Teams Multimedia Assistant Relationship Specialty Start Date End Date Marcial Ford MD PCP - General 07/29/20 Angelique Tabares MD [address] [place] [id number] Physical Medicine Teacher Obstetrics and Gynecology 10/05/22
--- OUTSIDE RECORDS SUMMARY | 2025-01-29 08:08 | XMS_ITS | Encounter Summary ---
Author Organization [facility] Address [address] [facility] [place] [address] Care Team Providers Care Market Development Executive Name Role Phone Unavailable Primary Care Provider Unavailabl e Reason for Visit * Reason Onset Date Comments MEDICATION REFILL 11/08/2022 Encounter Details Date Type Department Care Team (Late st Contact Info) Description 11/08/2022 Refill [facility] Dermatology [address] [facility], [place] [phone] Katherin Cruz MD [address] [facility] 3 [place] [address] MEDICATION REFILL Social History Tobacco Use Types Packs/Day Years Used Date Smoking Tobacco: Never Assessed Comments Unknown Sex and Gender Information Value Date Recorded Sex Assigned at Not on file Legal Sex Female 10:40 AM CDT Gender Identity Not on file Sexual Orientation Not on file documented as of this encounter Miscellaneous Notes * Telephone Encounter - Mark Garvin MA - 11/08/2022 1:16 PM CDT documented in this encounter Plan of Treatment Not on file documented as of this encounter Visit Diagnoses Not on filedocumented in this encounter
--- OUTSIDE RECORDS SUMMARY | 2025-01-29 08:08 | XMS_ITS | Referral Summary ---
Author Organization [facility] Address [address] [place] [address] Care Team Providers Care Director Independent Name Role Phone Marcial Ford MD Primary Care Provider Angelique Tabares MD Unavailable [phone] Encounters Date Type Department Care Team Description 01/25/2025 Results Follow-Up [facility] Breast [facility] [place] [facility] ([facility]) [address] [place] [phone] Zully Richards RN Surgical pathology 01/25/2025 3:30 PM CDT Ancillary Procedure [facility] Obstetrical Gynecology [address] [place] [address] [place] [phone] Pelvic pain 01/22/2025 10:14 AM CDT - 01/22/2025 11:59 PM CDT Hospital Encounter [facility] ([facility]) [address] [place] [phone] Abnormal MRI, breast; History of breast cancer Discharge Disposition: Discharge to home or self care 01/22/2025 8:09 AM CDT - 01/22/2025 11:59 PM CDT Hospital Encounter [facility] [address] [place] [phone] Abnormal MRI, breast; History of breast cancer Discharge Disposition: Discharge to home or self care 01/21/2025 Telephone [facility] ([facility]) [address] [place] [phone] Estephania Aguirre RN 01/08/2025 Telephone [facility] ([facility]) [address] [place] [phone] Estephania Aguirre RN 01/08/2025 Telephone [facility] Surgery [facility] Floor [address] [place] [address] Kaylyn Russell NP Breast Screening MRI results 01/06/2025 6:38 AM CDT - 01/06/2025 11:59 PM CDT Hospital Encounter [facility] ([facility]) [address] [place] [phone] Encounter for screening mammogram for malignant neoplasm of breast; At high risk for breast cancer Discharge Disposition: Discharge to home or self care 01/04/2025 Orders Only [facility] Obstetrical Gynecology [address] [place] [address] [place] [phone] Angelique Tabares MD Pelvic pain (Primary Dx) 12/22/2024 Telephone [facility] Obstetrical Gynecology [address] [place] [address] [place] [phone] Angelique Tabares MD from Last 3 Months Allergies Active Allergy Reactions Criticality Noted Date [...] MOUTH TWICE DAILY AT THE FIRST SIGN 04/17/202 3 Active meloxicam (MOBIC) 7.5 mg tabletIndicatio [...] (05/16/2020): Added automatically from request for surgery [id number] History of bilateral breast implants 05/16/2020 Overview (05/16/2020): Added automatically from request for surgery [id number] Deformity of breast 05/16/2020 Overview (05/16/2020): Added automatically from request for surgery [id number] Osteopenia 02/01/2020 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 Immunizations Immunization Administration Dates Next Due Influenza, Quadrivalent, Spl it, Intramuscular 05/27/2018,05/27/2018,05/22/2017,05/22 Influenza, Trivalent, IM (MDV) 5,04/29/2015,06/28/2014,07/15,07/15/2013 Influenza, Trivalent, Preser vative Free, Intramuscular 05/21/2017 Tdap 02/18/2019,02/18/2019 ZOSTER Recombinant 08/18/2018,04/28/2018 Social History Tobacco Use Types Packs/Day Years [...] on file Legal Sex Female 8:29 PM LOBBYIST Gender Identity Female 05/02/2020 5:05 PM CDT Sexual Orientation Straight 05/02/2020 5: 05 PM CDT Last Filed Vital Signs Vital Sign Reading Time Taken Comments Blood Pressure 142/80 09/28/2022 2:12 PM CDT Pulse 93 06/17/2020 8:30 AM LOBBYIST Temperature 36.2 C (97.1 F) 07/18/2020 11:40 AM LOBBYIST Respiratory Rate 18 06/17/2020 8:30 AM LOBBYIST Oxygen Saturation 98% 06/17/2020 8:30 AM LOBBYIST Inhaled Oxygen Concentration - - Weight 56.2 kg (124 lb) 01/22/2025 8:17 AM CDT Height 162.6 cm (5' 4) 01/22/2025 8:17 AM CDT Body Mass Index 21.28 01/22/2025 8:17 AM CDT Plan of Treatment Not on file Medical Devices Implanted Type Area Assistant Terminal Manager Device Identifier Shelf Expiration Date Model / Serial / Lot [employer] Ssm-310 Natrelle Inspira Smooth Shell Surface Moderate Profile Implant Latex Free - [id number] - [id number] Implanted:Qty: 1 on 06/17/2020 by Krystle Corea MD at [facility] Breast Left: Breast [employer] 10/30/2023 SSM-310 / [id number] / Rt Shoulder Pinning Implanted:01/14 (Quantity not on file) Right: Shoulder [employer] Trimark Mri Guided Rigid Deployment Device Cork Marker Breast Trimark Td 13-Mr - [id number] Implanted:Qty: 1 on 01/22/2025 at [facility] Right: Breast [employer]GRABRgic Limited Partnership [id number] 02/11/2026 TRIMARK TD 13-MR / / [id number] Explanted Type Area Assistant Terminal Manager Device Identifier Shelf Expiration Date Model / Serial / Lot Breast Explanted:Qty: 1 on 06/17/2020 by Krystle Corea MD at [facility] Breast Left: Breast Silimed / [id number] / [id number] Procedures Procedure Name Priority Date/Time Associated [...] Read Routine (OP Routine) 06/24/2024 11:41 AM LOBBYIST Encounter for screening mammogram for malignant neoplasm [...] will be discussed with the patient by [facility] or referring provider staff and will be [...] fellow) and Dr. Yariel Sylvester MD (diagnostic executive vice president and chief financial officer) also participated in this examination. us Kaylyn Russell COMPUTER MECHANIC IMG MAMMO PROCEDURES Ed ited Result - [...] will be discussed with the patient by [facility] or referring provider staff and will be [...] fellow) and Dr. Yariel Sylvester MD (diagnostic executive vice president and chief financial officer) also participated in this examination. Kaylyn Russell COMPUTER MECHANIC IM MRI PROCEDURES Edit ed Result - Final * Surgical pathology (01/22/2025 9:46 AM CDT) Tissue (Breast biopsy, needle core) 01/22/2025 9:46 AM CDT Narrative PATHOLOGY [facility] - 01/25/2025 1:01 PM CDT EPIC results best viewed via link to PDF [facility] Laboratory of Surgical Pathology [address] [place] [address] Note to Patients: This report may contain [...] Gender: F : 1955 (Age: 69) Address: [address] [place] [phone] [facility] #: [id number] Taken:01/22/2025 Received:01/22/2025 Reported: 01/25/2025 Patient Type: [facility] Ancillary Service: UNKNOWN Location: Physician(s): CHINA Lewis M.D. Diagnosis: Breast, right, central upper, MRI-guided biopsy - Breast tissue with prominent vasculature and organizing hemorrhage - No atypical or malignant findings fr/01/24/2025 11:54 By this signature, I attest that [...] after collection. Total fixation time= 8.0 hours. tonsil hospital/01/22/2025 11:50 PA(s): Sheila Garcia By this signature, I attest that the above diagnosis is based upon my personal examination of the slides(and/or other material). Addenda/Procedures The performance characteristics of some immunohistochemical stains, fluorescence in-situ hybridization tests and immunophenotyping by flow cytometry cited in this report (if any) were determined by the Surgical Pathology and Flow Cytometry Departments at [facility] as part of an ongoing corporate quality manager program and in compliance with federally mandated [...] Surgical Pathology and Flow Cytometry Departments of [facility]. It has not been cleared or approved by the U. S. Food and Drug Administration. IMAGES AND SCANNED DOCUMENTS, IF INCLUDED, ONLY VIEWABLE IN PDF VERSION OF REPORT us Kaylyn Russell NP LAB PATHOLOGY ORDERABLE S Final Result [facility] 3rd Floor [place], [place] [phone] * (ABNORMAL) MRI Breast Bilateral W WO [...] in situ status post left mastectomy in 2011. She also had right excisional biopsy for papilloma in 2011. TECHNIQUE: MRI examination of the breasts per [...] W Cameron Unilateral Only (06/24/2024 11:41 AM LOBBYIST) Anatomical Region Laterality Modality Breast Right Mammography Narrative 06/25/2024 11:39 AM LOBBYIST Mammogram Technique: Right Breast Digital Breast Tomosynthesis, Unilateral C-view 2D Screening mammogram. Views obtained: right craniocaudal and right mediolateral oblique. Computer Aided Detection was performed. Mammogram Findings: The present examination has been compared to prior imaging studies performed at [facility] on 05/23/2021, 05/29/2022 and 06/10/2023. There are [...] compared to prior imaging studies performed at [facility] on 05/23/2021, 05/29/2022 and 06/10/2023. There are [...] F with given history of screening. Postmenopausal Assistant Terminal Manager/Model: [employer] A (S/N [id number]) CLINICAL INFORMATION: Current height: 64 inches Maximum [...] Felipe Montana M.D. MF: [place] Report ID: [id number] Reading Location: [id number] [facility] Note Felipe Montana MD - 10/06/2022 EXAM DESCRIPTION: DEXA AXIAL SKELETON BONE DENSITY 1 OR MORE SITES REASON FOR STUDY: 67 y/o year old F with given history of screening. Postmenopausal Assistant Terminal Manager/Model: [employer] A (S/N [id number]) CLINICAL INFORMATION: Current height: 64 inches Maximum [...] Felipe Montana M.D. MF: [place] Report ID: [id number] Reading Location: [id number] Angelique Tabares MD IM DXA PROCEDURES Final Result from Last 3 Months or Most Recently Relevant to Health Maintenance Insurance [facility] CIG[employer] OPEN ACCESS MEDICARE [facility] MEDICARE [facility] MEDICARE [facility] Care Teams Director Independent Relationship Specialty Start Date End Date Marcial Ford MD PCP - General 07/29/20 Angelique Tabares MD [address] [place] [phone] Manager Disaster Recovery Obstetrics and Gynecology 10/05/22
--- OUTSIDE RECORDS SUMMARY | 2025-01-29 08:08 | XMS_ITS | Encounter Summary ---
Author Organization [facility] Address [address] [facility] [place] [address] Care Team Providers Care Hypnotherapist Name Role Phone Unavailable Primary Care Provider Unavailabl e Encounter Details Date Type Department Care Team (Late st Contact Info) Description 10/14/[address] [facility] Care DermPath Lab [address] [facility], [place] [phone] Katherin Cruz MD [address] [facility] 3 [place] [address] Social History Tobacco Use Types Packs/Day Years [...] Priority Date/Time Associated Diagnosis Comments DERMATOPATHOLOGY Routine 10/13/2018 12:0 0 AM CDT documented in this encounter Results * DERMATOPATHOLOGY (10/13/2018 12:00 AM CDT) Case Report Dermatopathology Report Case: [id number] Authorizing Provider: Katherin Cruz MD Collected: 10/13/2018 12:00 AM Pathologist: Eufemia Yung MD Received: 10/14/2018 06:21 AM Specimen: Skin, left buttock 9 2:20 PM CDT DERMATOPATHOLOGY LABORATORY Final Diagnosis Specimen A. SKIN, left buttock: SEBORRHEIC KERATOSIS, IRRITATED AND INFLAMED (L82.0) 9 2:20 PM CDT DERMATOPATHOLOGY LABORATORY at 1420 CDT Clinical History Cowles crusted papule ISK vs VV vs SCCIS 2:20 PM CDT DERMATOPATHOLOGY LABORATORY Gross Description Specimen A: Received is one formalin filled container labeled with the patient's name and designated left buttock. The specimen consists of a shave biopsy measuring 9x8x3 mm. Jar 0. 2:20 PM CDT DERMATOPATHOLOGY LABORATORY Microscopic Description Specimen A. SKIN, left buttock: Sections show acanthosis, papillomatosis, hyperkeratosis, and squamous eddies. There is a lymphohistiocytic infiltrate within the papillary dermis. 2:20 PM CDT DERMATOPATHOLOGY LABORATORY Disclaimer An external and internal positive and negative controls are appropriate for the histochemical, immunohistochemical and immunofluorescence stain(s) in this case (if any), except where stated explicitly. The performance characteristics of the stain(s) cited in this report were developed and its performance characteristic determined by the Dermatopathology Laboratory at [facility], directed by Dr. Kena Francis. These tests need not be, and therefore are not, approved by the [place] Food and Drug Administration. The tests are used for clinical purposes. Billing Codes Specimen Charges Stain Charges 15906 1 2:20 PM CDT DERMATOPATHOLOGY LABORATORY Embedded Images 2:20 PM CDT DERMATOPATHOLOGY LABORATORY Pathology/Cytolog y TISSUE SPECIMEN FROM SKIN / Unknown 10/13/2018 10/14/2018 6:21 AM CDT us Katherin Cruz MD LAB - PATHOLOGY/CYTOLOGY ORD ERABLES Final Result DERMATOPATHOLOGY LABORATORY [facility] - Department of Dermatology [address] [place] [address], 5th [place] [address], [facility] [phone] documented in this encounter Visit Diagnoses Not on filedocumented in this encounter
--- OUTSIDE RECORDS SUMMARY | 2025-01-29 08:08 | XMS_ITS | Clinical Summary ---
Author Organization [facility] Address [address] [place] [address] Care Team Providers Care Communication Studies Professor Name Role Phone Unavailable Primary Care Provider Unavailabl e Source Comments [email or web address],non-owned Affiliates and Associated Physician Practices is amultiple site organization consisting of ambulatory clinics and hospital sitesin [place], [place], [place] and [place]. This disclosure is being madepursuant to the Care Everywhere program and may not contain all information available regarding this patient. Last updated 18.[email or web address] Social History Tobacco Use Types Packs/Day Years Used Date Smoking Tobacco: Never Assessed Comments Unknown Sex and Gender Information Value Date Recorded Sex Assigned at Not on file Legal Sex Female 10:40 AM CDT Gender Identity Not on file Sexual Orientation Not on file Plan of Treatment Health Maintenance Due Date Last Done Comments BONE DENSITY TESTING 1955 COLOGUARD (AGES 45-75) - COL ON CA SCREENING 1955 COLON MONITORING 1956 COLONOSCOPY - COLON CA SCREENING 1956 CT COLONOGRAPHY - COLON CA SCREENING 1955 Colorectal Cancer Screening 1955 FIT - COLON CA SCREENING 1956 FLEX SIG - COLON CA SCREENING 1956 LIPID TESTING 1955 MAMMOGRAM 1955 MEDICARE AWV 12 MONTHS 1955 HEPATITIS C SCREENING 02/11/1974 DTAP/TDAP/TD VACCINES (1 - Tdap) 02/15/1975 PNEUMOCOCCAL VACCINE 50+ (1 of 1 - PCV) 02/15/2006 ZOSTER VACCINE (1 of 2) 02/15/2006 COVID-19 VACCINE (1 - 2023-2 5 season) 2024 DEPRESSION SCREENING 07/15/2024 INFLUENZA VACCINE (#1) 2025 Respiratory Syncytial Virus (RSV) Vaccine Pt: or over 60 yrs (1 - 1-dose 75+ series) 02/15/2031 HEPATITIS B VACCINE Aged Out No longe r eligible based on patient's age to complete this topic HIB VACCINE Aged Out No longer eligi ble based on patient's age to complete this topic HPV VACCINE Aged Out No longer eligi ble based on patient's age to complete this topic MENINGOCOCCAL (Group B) VACC INE SHARED DECISION-MAKING Aged Out No longer eligibl e based on patient's age to complete this topic MENINGOCOCCAL GROUPS A/C/Y/W VACCINE Aged Out No longer eligible b ased on patient's age to complete this topic Insurance MEDICARE [facility] MEDICARE [facility]
--- OUTSIDE RECORDS SUMMARY | 2025-01-29 08:08 | XMS_ITS | Encounter Summary ---
Author Organization [facility] Address [address] [place] [address] Care Team Providers Care Api Product Manager Name Role Phone Unavailable Primary Care Provider Unavailabl e Encounter Details Date Type Department Care Team (Late st Contact Info) Description 02/14/2023 Lab Requisition [facility] - DermPath Lab [address] [facility], [place] [address] Katherin Cruz MD [address] [facility] [address] [place] [address] Social History Tobacco Use Types Packs/Day Years [...] Priority Date/Time Associated Diagnosis Comments DERMATOPATHOLOGY Routine 02/14/2023 2:45 PM CDT documented in this encounter Results * DERMATOPATHOLOGY (02/14/2023 2:45 PM CDT) Case Report Dermatopathology Report Case: [id number] Authorizing Provider: Katherin Cruz MD Collected: 02/14/2023 02:45 PM Ordering Location: [facility] DermPath Lab Received: 02/15/2023 11:43 AM Pathologist: Pili Gillette MD Specimen: Skin, nose tip 1:36 PM CDT DERMATOPATHOLOGY LABORATORY Final Diagnosis Specimen A. SKIN, nose tip: BASAL CELL CARCINOMA, INFILTRATIVE PATTERN (C44.311) 1:36 PM CDT DERMATOPATHOLOGY LABORATORY at 1336 CDT Clinical History R/O BCC vs. Scar 3 1:36 PM CDT DERMATOPATHOLOGY LABORATORY Gross Description Specimen A: Received is one formalin filled container labeled with the patient's name and designated nose tip. The specimen consists of a shave biopsy measuring 3x2x1 mm. Jar 0. 1:36 PM CDT DERMATOPATHOLOGY LABORATORY Microscopic Description Specimen A. SKIN, nose tip: Within the dermis there are nodular aggregates of basaloid cells associated with fibromyxoid stroma and epithelial-stromal clefts. At the advancing margin of the neoplasm, there are smaller angulated nests that infiltrate the dermis. 3 1:36 PM CDT DERMATOPATHOLOGY LABORATORY Disclaimer An external and internal positive and negative controls are appropriate for the histochemical, immunohistochemical and immunofluorescence stain(s) in this case (if any), except where stated explicitly. The performance characteristics of the stain(s) cited in this report were developed and its performance characteristic determined by the Dermatopathology Laboratory at [facility], directed by Dr. Kena Francis. These tests need not be, and therefore are not, approved by the [place] Food and Drug Administration. The tests are used for clinical purposes. Billing Codes Specimen Charges Stain Charges 95016 1 3 1:36 PM CDT DERMATOPATHOLOGY LABORATORY Embedded Images 3 1:36 PM CDT DERMATOPATHOLOGY LABORATORY Pathology/Cytolo gy TISSUE SPECIMEN FROM SKIN / Unknown 02/14/2023 2:45 PM CDT 02/15/2023 11:43 AM CDT us Katherin Cruz MD LAB - PATHOLOGY/CYTOLOGY ORD ERABLES Final Result DERMATOPATHOLOGY LABORATORY [facility] Department of Dermatology [address], [address] [phone] documented in this encounter Visit Diagnoses Not on filedocumented in this encounter
--- OUTSIDE RECORDS SUMMARY | 2025-01-29 08:08 | XMS_ITS | Clinical Summary ---
Author Organization [facility] Address [facility] [place] [address] Care Team Providers Care Campus Interviews Intern Name Role Phone Marcial Ford MD Primary Care Provider [phone] Allergies Active Allergy Reactions Criticality Noted Date Comments Sulfamethoxazole-Trimethoprim Swelling,Vomiting 10/15/2024 Medications rosuvastatin (CRESTOR) 10 MG tablet Take 1 tablet (10 mg total) by mouth daily. 08/13/2024 Active omeprazole (PRILOSEC) 20 MG capsule Take 1 capsule (20 mg total) by mouth daily. 10/10/2024 Active Social History Tobacco Use Types Packs/Day Years Used Date Smoking Tobacco: Never Assessed Comments Unknown Sex and Gender Information Value Date Recorded Sex Assigned at Female 10/15/2024 4:38 PM CDT Legal Sex Female 5:27 PM CDT Gender Identity Not on file Sexual Orientation Not on file Last Filed Vital Signs Vital Sign Reading Time Taken Comments Blood Pressure 147/87 10/15/2024 8:00 PM CDT Pulse 67 10/15/2024 8:00 PM CDT Temperature 36.3 C (97.3 F) 10/15/2024 4:39 PM CDT Respiratory Rate 18 10/15/2024 4:39 PM CDT Oxygen Saturation 97% 10/15/2024 8:00 PM CDT Inhaled Oxygen Concentration - - Weight 57.6 kg (127 lb) 10/15/2024 4:39 PM CDT Height 162.6 cm (5' 4) 10/15/2024 4:39 PM CDT Body Mass Index 21.8 10/15/2024 4:39 PM CDT Plan of Treatment Health Maintenance Due Date Last Done Comments Colorectal Cancer Screening Colonoscopy (10 Years) 1955 Hepatitis C 02/15/1974 Annual Medicare Wellness Visit 02/15/2021 COVID-19 Vaccine ( season) 2024 03/26/2024, 04/08/2023, 03/29/2022, Additional history exists Mammogram Screening 06/24/2026 06/24/2024, 06/10/2023, 05/29/2022, Additional history exists DTaP, Tdap and Td Vaccines (2 - Td or Tdap) 02/18/2029 02/18/2019 Zoster Vaccines Completed 08/18/2018, 04/28/2018 Pneumococcal Vaccine: 50+ Years Completed 07/04/2022, 05/22/2021 Dexa Scan (General) Completed 10/05/2022, 10/05/2022, 05/11/2020, Additional history exists RSV Immunization or 60+ Years Completed 05/06/2023 Meningococcal B Vaccine Aged Out No l onger eligible based on patient's age to complete this topic Meningococcal Vaccine Aged Out No nayan júnior eligible based on patient's age to complete this topic RSV Immunizations Under 20 Months Aged Out No longer eligible based on patient's age to complete this topic Insurance MEDICARE [facility] Care Teams Campus Interviews Intern Relationship Specialty Start Date End Date Marcial Ford MD [address] [address] PCP - General FAMILY PRACTICE 10/15/24
--- OUTSIDE RECORDS SUMMARY | 2025-01-29 08:08 | XMS_ITS | Encounter Summary ---
Author Organization [facility] Address [address] [place] [address] Care Team Providers Care Rail Operations Controller Name Role Phone Unavailable Primary Care Provider Unavailabl e Encounter Details Date Type Department Care Team (Late st Contact Info) Description 02/27/2024 Lab Requisition [facility] - DermPath Lab [address] [facility] [place] [address] Katherin Cruz MD [address] [facility] [address] [place] [address] Social History Tobacco Use Types Packs/Day Years [...] Priority Date/Time Associated Diagnosis Comments DERMATOPATHOLOGY Routine 02/27/2024 8:52 AM CDT documented in this encounter Results * DERMATOPATHOLOGY (02/27/2024 8:52 AM CDT) Case Report Dermatopathology Report Case: [id number] Authorizing Provider: Katherin Cruz MD Collected: 02/27/2024 08:52 AM Ordering Location: [facility] Physician [facility] - Received: 02/28/2024 07:06 AM DermPath Lab Pathologist: Eufemia Yung MD Specimen: Skin, mid forehead 11:28 AM CDT DERMATOPATHOLOGY LABORATORY Final Diagnosis Specimen A. SKIN, mid forehead: BASAL CELL CARCINOMA, INFILTRATIVE PATTERN (C44.319) 11:28 AM CDT DERMATOPATHOLOGY LABORATORY at 1128 CDT Clinical History [place] papule r/o BCC 11:28 AM CDT DERMATOPATHOLOGY LABORATORY Gross Description Specimen A: Received is one formalin filled container labeled with the patient's name and designated mid forehead. The specimen consists of a shave biopsy measuring 4x2x1 mm. Jar 0. 11:28 AM CDT DERMATOPATHOLOGY LABORATORY Microscopic Description Specimen A. SKIN, mid forehead: Within the dermis there are nodular aggregates of basaloid cells associated with fibromyxoid stroma and epithelial-stromal clefts. At the advancing margin of the neoplasm, there are smaller angulated nests that infiltrate the dermis. 11:28 AM CDT DERMATOPATHOLOGY LABORATORY Disclaimer An external and internal positive and negative controls are appropriate for the histochemical, immunohistochemical and immunofluorescence stain(s) in this case (if any), except where stated explicitly. The performance characteristics of the stain(s) cited in this report were developed and its performance characteristic determined by the Dermatopathology Laboratory at [facility], directed by Dr. Kena Francis. These tests need not be, and therefore are not, approved by the [place] Food and Drug Administration. The tests are used for clinical purposes. Billing Codes Specimen Charges Stain Charges 83178 1 4 11:28 AM CDT DERMATOPATHOLOGY LABORATORY Embedded Images 11:28 AM CDT DERMATOPATHOLOGY LABORATORY Pathology/Cytolo gy TISSUE SPECIMEN FROM SKIN / Unknown 02/27/2024 8:52 AM CDT 02/28/2024 7:06 AM CDT us Katherin Cruz MD LAB - PATHOLOGY/CYTOLOGY ORD ERABLES Final Result DERMATOPATHOLOGY LABORATORY [facility] - Department of Dermatology [address], [address] Floor [address] [phone] documented in this encounter Visit Diagnoses Not on filedocumented in this encounter
--- NOTE | 2025-01-29 08:12 | ED_ITS ---
HPI - General Adult General Chief complaint: Wound/Laceration Stated complaint: bee sting Time Seen by Provider: 01/29/25 08:18 Source: patient, RN notes reviewed and old records reviewed Mode of arrival: ambulatory Limitations: no limitations History of Present Illness HPI narrative: 69-year-old female presents to the [facility] with concerns a bee sting to the wrist, left. States approximately 7:00 a.m. yesterday morning she was stung by the bee. Has some swelling to the wrist. Reports that she has applied ice, taken ibuprofen and 1 allergy 24 hour pill. Full range of motion is noted. Strong bariatric nurse. Positive radial pulse. Area is pink, small blisters are noted No lip or tongue swelling. No difficulty breathing. Onset (ago): day(s) (1) Related Data Home Medications ?Medication ?Instructions ?Recorded ?Confirmed ?Last Taken ?Type valacyclovir 1 gram tablet 1,000 mg PO DAILY PRN fever 07/09/23 01/25/25 Unknown History blisters Allergies Allergy/AdvReac Type Severity Reaction Status Date / Time tramadol Allergy Severe TONGUE Verified 01/29/25 08:16 SWELLING sulfamethoxazole Allergy Unknown Swelling Verified 01/29/25 08:16 of Lip/Tongue/Throat trimethoprim Allergy Unknown Swelling Verified 01/29/25 08:16 of Lip/Tongue/Throat Review of Systems 2 Review of Systems: All systems reviewed & are unremarkable except as noted in HPI and below Constitutional: Constitutional: Reports no additional constitutional complaints ENT: Reports system reviewed and no additional complaints, except as documented Cardiovascular: Cardiovascular: Reports no additional cardiovascular complaints, Denies chest pain and Denies dyspnea Respiratory: Respiratory: Reports no additional respiratory complaints, Denies chest congestion, Denies cough and Denies dyspnea Musculoskeletal: Musculoskeletal: Reports no additional musculoskeletal complaints Integumentary/Breasts: Skin/Breast: Reports as per HPI [facility] Past Medical History Medical History Screening for measles Constipation Chest pain due to GERD Seasonal allergies Surgical History Surgical History H/O left mastectomy Family History Family History Father No problems noted. Mother No problems noted. Sibling No problems noted. Social History Social History Smoking status: Never smoker Second hand tobacco smoke exposure: No Alcohol intake: current Substance use: never Substance use type: does not use Do You Feel Safe in your Home?: Yes Lack of Transportation: No Lack of Food: Never True Current Housing: I Have Housing Concerned About Future Housing: No Difficulty Paying Gas/Electric Bills: No Difficulty Paying for Meds: No Currently Unemployed: No Education: Associate Degree Difficulty w/ Childcare or Family Care: No Comments At the time of my signature, I reviewed and agree with the nursing past medical, surgical, social, and family history. There is no relevant family history pertinent to the patient complaint. Exam 2 Const: General: cooperative, healthy appearing, comfortable, no acute distress, well developed, alert and well nourished Nutritional Appearance: w ell nourished Orientation/consciousness: patient oriented x3 Limitations: no limitations HENMT: Head: normal to inspection Mouth: Yes Normal oral and palatal mucosa present, Yes lip normal, Yes tongue normal and Yes moist mucous membranes Eyes: General: appearance normal, both eyes and all related structures A lignment and Position: alignment normal Neck: Neck: normal visual inspection, full ROM, no lymphadenopathy and no meningeal signs Chest: Chest palpation & inspection: normal inspection of the chest Resp: Effort & Inspection: normal respiratory effort and able to speak in complete sentences Cardio: Rate: regular rate Skin: General skin exam: normal color and no rashes or lesions noted R ashes: rashes noted Full body images: 1. Mild swelling, pink, small blisters, insect sting. No stinger noted. Positive radial pulse. Full range of motion of the fingers, wrist and elbow. Neuro: General: patient oriented x3, gait normal, moves all extremities and no meningeal signs Cognition (Neuro): normal cognition Speech: normal speech Gait exam (Neuro): Normal gait present Extrem: General: normal to inspection, full ROM, capillary refill normal and normal gait Left upper extremity: elbow/forearm normal to inspection and normal ROM; no tenderness and no swelling, wrist swelling, normal ROM, normal vascular exam and radial pulse present; no ecchymosis and hand normal to inspection Psych: Appearance: grossly normal and well kempt Mental Status: mental status grossly normal Speech and movement: Normal speech and movement present and Clear speech present Affect: normal affect Attitude: cooperative Course Course Level of Care: Express Care Visit Vital Signs Vital signs: Vital Signs Temperature 98.6 F 01/29/25 08:15 Pulse Rate 75 01/29/25 08:15 Respiratory Rate 16 01/29/25 08:15 Blood Pressure 109/59 L 01/29/25 08:15 Pulse Oximetry 100 01/29/25 08:15 Oxygen Delivery Room Air 01/29/25 08:15 Temperature 98.6 F 01/29/25 08:15 Pulse Rate 75 01/29/25 08:15 Respiratory Rate 16 01/29/25 08:15 Blood Pressure 109/59 L 01/29/25 08:15 Pulse Oximetry 100 01/29/25 08:15 Oxygen Delivery Room Air 01/29/25 08:15 Reviewed Medical Decision Making MDM Narrative Medical decision making narrative: Patient sitting comfortably in exam room. Nontoxic, vitals stable. Patient in no acute distress Patient presents with 24 hours post bee sting. No systemic reaction. Localized reaction to a bee sting. Will prescribe prednisone, discussed [id number] treatments. Patient is appropriate for outpatient treatment with close follow-up Discharge instructions reviewed with patient, as well as provided in writing per nursing staff. The instructions also include specific and strict return/GO TO THE ER as well as f/u information. All questions have been answered, and the patient deny any further questions with discharge and discharge plan. Some parts of this dictation were generated by voice recognition software and may contain typographical and/or grammatical inaccuracies. Differential Diagnosis Differential Diagnosis: Localized reaction, allergic reaction, cellulitis Medical Records Medical records reviewed: Yes I reviewed the external patient's medical records. Vital Signs Vital Signs: Vital Signs Temperature 98.6 F 01/29/25 08:15 Pulse Rate 75 01/29/25 08:15 Respiratory Rate 16 01/29/25 08:15 Blood Pressure 109/59 L 01/29/25 08:15 Pulse Oximetry 100 01/29/25 08:15 Oxygen Delivery Room Air 01/29/25 08:15 Temperature 98.6 F 01/29/25 08:15 Pulse Rate 75 01/29/25 08:15 Respiratory Rate 16 01/29/25 08:15 Blood Pressure 109/59 L 01/29/25 08:15 Pulse Oximetry 100 01/29/25 08:15 Oxygen Delivery Room Air 01/29/25 08:15 Reviewed Lab Data Lab results reviewed: Yes I reviewed the patient's lab results. Labs: Reviewed Critical Care Time Critical Care Time Critical Care Time: No Discharge Plan Discharge Clinical Impression: Local reaction to bee sting Qualifiers: Encounter type: initial encounter Injury intent: accidental or unintentional Q ualified Code(s): T63.441A - Toxic effect of venom of bees, accidental (unintentional), initial encounter Patient Disposition: Home Condition: Stable Instructions: Insect Bite or Sting (ED) Additional Instructions: The most important part of your care is follow up with Primary care provider. Take Benadryl 25 mg every 8 hours for itching Take Zyrtec every day Take Pepcid 20mg daily for 7 days Take the steroids starting today. Take every morning Apply hydrocortisone cream Avoid hot showers, Take cool showers. Hot showers will make rashes worse Apply cool compresses every 2-3 hours for 15 minutes Go to the ER for new or worsening symptoms such as shortness of breath. Patient Language: Georgian Prescriptions: New prednisone 20 mg tablet See Rx Instructions .Route .COMPLEX Qty: 9 0RF Rx Instructions: Take 40 mg daily for 3 days, 20 mg daily for 3 days No Action epinephrine [EpiPen 2-Darrius] 0.3 mg/0.3 mL auto-injector 1 mg IM Q15M PRN (Reason: anaphylaxis) Qty: 2 0RF Rx Instructions: do not exceed 3 doses per episode valacyclovir 1 gram tablet 1,000 mg PO DAILY PRN (Reason: fever blisters) ferrous sulfate 27 mg iron tablet 27 mg PO DAILY Qty: 20 0RF ascorbate calcium (vitamin C) 500 mg tablet 500 mg PO DAILY Qty: 20 0RF rosuvastatin 10 mg tablet 10 mg PO DAILY Qty: 90 1RF famotidine 20 mg tablet 20 mg PO DAILY Qty: 30 1RF Follow-up/Referrals: Marcial Ford MD [Primary Care Provider] - 2 Weeks ([facility] ) Time of Disposition: 08:24
[2025-01-29 08:15] VITALS: BP 109/59; PULSE 75; RESP 16; TEMP 37; O2SAT 100
== END 2025-01-29 08:26 | disposition home or self-care (01) ==
PROVIDERS: Emergency Provider Nurse Practitioner; PCP Family Medicine
DX: T63.441A Toxic effect of venom of bees, accidental (unintentional), initial encounter (principal); K21.9 Gastro-esophageal reflux disease without esophagitis; Z90.12 Acquired absence of left breast and nipple
CPT/HCPCS: 99213; G0463

== ENCOUNTER 2025-03-05 08:05 | Outpatient (CLI) | payer MEDICARE, SELFPAY ==
--- OUTSIDE RECORDS SUMMARY | 2025-03-05 08:09 | XMS_ITS | Encounter Summary ---
Author Organization [facility] Address [address] [facility] [place] [address] Care Team Providers Care Statistician Applied Name Role Phone Unavailable Primary Care Provider Unavailabl e Reason for Visit * Reason Onset Date Comments MEDICATION REFILL 11/08/2022 Encounter Details Date Type Department Care Team (Late st Contact Info) Description 11/08/2022 Refill [facility] Dermatology [address] [facility] [place] [phone] Katherin Cruz MD [address] [facility] 3 [place] [address] MEDICATION REFILL Social History Tobacco Use Types [...]
--- OUTSIDE RECORDS SUMMARY | 2025-03-05 08:09 | XMS_ITS | Encounter Summary ---
Author Organization [facility] Address [address] [facility] [place] [address] Care Team Providers Care Sewer And Drain Technician Name Role Phone Unavailable Primary Care Provider Unavailabl e Encounter Details Date Type Department Care Team (Late st Contact Info) Description 10/14/2018 Lab Requisition [facility] Care DermPath Lab [address] [facility] [place] [phone] Katherin Cruz MD [address] [facility] [address] [place] [address] Social History Tobacco Use Types Packs/Day Years [...] AM CDT) Case Report Dermatopathology Report Case: [id number] Authorizing Provider: Katherin Cruz MD Collected: 10/13/2018 12:00 AM Pathologist: Eufemia Yung MD Received: 10/14/2018 06:21 AM Specimen: Skin, left buttock 9 2:20 PM CDT DERMATOPATHOLOGY LABORATORY Final Diagnosis Specimen A. SKIN, left buttock: SEBORRHEIC KERATOSIS, IRRITATED AND INFLAMED (L82.0) 9 2:20 PM CDT DERMATOPATHOLOGY LABORATORY at 1420 CDT Clinical History [place] crusted papule ISK vs VV vs SCCIS [...] characteristic determined by the Dermatopathology Laboratory at [facility], directed by Dr. Kena Francis. These tests need not be, and therefore are not, approved by the [place] Food and Drug Administration. The tests are used for clinical purposes. Billing Codes Specimen Charges Stain Charges 15762 1 2:20 PM CDT DERMATOPATHOLOGY LABORATORY Embedded Images 2:20 PM CDT DERMATOPATHOLOGY LABORATORY Pathology/Cytolog y TISSUE SPECIMEN FROM SKIN / Unknown 10/13/2018 10/14/2018 6:21 AM CDT us Katherin Cruz MD LAB - PATHOLOGY/CYTOLOGY ORD ERABLES Final Result DERMATOPATHOLOGY LABORATORY [facility] - Department of Dermatology [address] [place] [address], [address] [place] [address], [facility] [phone] documented in this encounter Visit Diagnoses Not on filedocumented in this encounter
--- OUTSIDE RECORDS SUMMARY | 2025-03-05 08:09 | XMS_ITS | Clinical Summary ---
Author Organization [facility] Address [address] [place] [address] Care Team Providers Care Visual Stylist Name Role Phone Marcial Ford MD Primary Care Provider [phone] Angelique Tabares MD Unavailable [phone] Allergies Active Allergy Reactions Criticality Noted Date Comments Sulfamethoxazole-Trimet hoprim Swelling,Vomiting Medium 06/10/2012 In throat and lips Medications calcium carbonate-sorin min D3 1,250mg (500mg elemental) - 5 mcg (200 units) per tablet Take 1 tablet by mouth every morning supplement Active multivitamin tabletIndicati ons:Vitamin Deficiency Prevention Take 1 tablet by mouth every morning Active valACYclovir (VALTREX) 1 gram tablet TAKE 2 TABLETS BY MOUTH TWICE DAILY AT THE FIRST SIGN 3 Active famotidine (PEPCID) 20 mg tablet Take 1 tablet (20 mg total) by mouth daily 5 Active predniSONE (DELTASONE) 20 mg tablet TAKE 2 TABLETS BY MOUTH DAILY FOR 3 DAYS THEN 1 TABLET DAILY FOR 3 DAYS 5 Active rosuvastatin (CRESTOR) 10 mg tablet Take 1 tablet (10 mg total) by mouth daily 5 Active finasteride (PROSCAR) 5 mg tablet Take 2.5 mg by mouth daily 5 02/06/20 25 Discontinu ed(Patient Reported) Active Problems Problem Noted Date Diagnosed Date History of breast cancer 05/16/2020 Overview (05/16/2020): Added automatically from request for surgery [id number] History of bilateral breast implants 05/16/2020 Overview (05/16/2020): Added automatically from request for surgery [id number] Deformity of breast 05/16/2020 Overview (05/16/2020): Added automatically from request for surgery [id number] Osteopenia 02/01/2020 Enthesopathy of wrist and carpus [...] Encounters Date Type Department Care Team Description 02/05/2025 Orders Only [facility] Obstetrical Gynecology [address] [place] [address] [address] [place] [address] Angelique Tabares MD Low bone mass (Primary Dx); Other specified disorders of bone density and structure, other site 02/01/2025 9:30 AM CDT Office Visit [facility] Obstetricin Gynecology [address] [place] [address] [place] [phone] Angelique Tabares MD Well woman exam with routine gynecological exam (Primary Dx); LLQ pain 01/25/2025 3:30 PM CDT Ancillary Procedure [facility] Obstetricin Gynecology [address] [place] [address] [place] [phone] Pelvic pain 01/25/2025 Results Follow-Up [facility] ([facility]) [address] [place] [address] Zully Richards RN Surgical pathology 01/22/2025 10:14 AM CDT - 01/22/2025 11:59 PM CDT Hospital Encounter [facility] ([facility]) [address] [place] [address] Abnormal MRI, breast; History of breast cancer Discharge Disposition: Discharge to home or self care 01/22/2025 8:09 AM CDT - 01/22/2025 11:59 PM CDT Hospital Encounter [facility] ([facility]) [address] [place] [address] Abnormal MRI, breast; History of breast cancer Discharge Disposition: Discharge to home or self care 01/21/2025 Telephone [facility] ([facility]) [address] [place] [address] Estephania Aguirre, BEV 01/08/2025 Telephone [facility] ([facility]) [facility] [place] [address] Estephania Aguirre RN 01/08/2025 Telephone [facility] Medicine Surgery [address] [facility] Floor [address] [place] [address] Kaylyn Russell NP Breast Screening MRI results 01/06/2025 6:38 AM CDT - 01/06/2025 11:59 PM CDT Hospital Encounter [facility] ([facility]) [address] [place] [address] Encounter for screening mammogram for malignant neoplasm of breast; At high risk for breast cancer Discharge Disposition: Discharge to home or self care 01/04/2025 Orders Only [facility] Obstetrical Gynecology [address] [facility] [address] [place] [address] Angelique Tabares MD Pelvic pain (Primary Dx) 12/22/2024 Telephone [facility] Obstetrical Gynecology [address] [place] [address] Angelique Tabares MD from Last [...] by TW Conv) Cancer Sister Cancer Son Ovarian cancer Neg Hx Uterine cancer Neg Hx Relation Name Status Comments Father Mother Sister [...] on file Legal Sex Female 8:29 PM DISABILITY INSURANCE CLAIM EXAMINER Gender Identity Female 05/02/2020 5:05 PM CDT Sexual Orientation Straight 05/02/2020 5: 05 PM CDT Obstetrics History Para Term AB IAB SAB Ectopic Multiple Livin g Live Births 3 3 3 3 3 Date Outcome GA Total Labor Labor/2nd/3rd Weight Sex Type Anes PTL Michelle A1 A5 Name Clin 1984 Term 2.807 kg (6 lb 3 oz) F CS-LT ranv Living Complications:Breech 1987 Term 2.92 kg (6 lb 7 oz) M CS-LT ranv Living Complications:Breech 1990 Term 3.033 kg (6 lb 11 oz) F CS-LT ranv Living Complications:None Comments 07/12/52 Last Filed Vital Signs Vital Sign Reading Time Taken Comments Blood Pressure 140/70 02/01/2025 9:37 AM CDT Pulse 93 06/17/2020 8:30 AM DISABILITY INSURANCE CLAIM EXAMINER Temperature 36.2 C (97.1 F) 07/18/2020 11:40 AM DISABILITY INSURANCE CLAIM EXAMINER Respiratory Rate 18 06/17/2020 8:30 AM DISABILITY INSURANCE CLAIM EXAMINER Oxygen Saturation 98% 06/17/2020 8:30 AM DISABILITY INSURANCE CLAIM EXAMINER Inhaled Oxygen Concentration - - Weight 58.8 kg (129 lb 9.6 oz) 02/01/2025 9:37 A M CDT Height 162.6 cm (5' 4) 02/01/2025 9:37 AM CDT Body Mass Index 22.25 02/01/2025 9:37 AM CDT Plan of Treatment Health Maintenance Due Date Last Done Comments Colon Cancer Screening-Colonoscopy 1955 Depression Screening 1955 Hepatitis C Screening 1955 Hepatitis B Screening 02/15/1974 Pneumococcal vaccine 65+ (1 of 1 - PCV) 02/15/2006 Fall Risk Assessment 06/17/2021 06/17/2020 Osteoporosis Screening-Bone Density Scan 10/05/2024 10/05/2022, 05/11/2020, 08/22/2018, Additional history exists Influenza Vaccine (#1) 2025 8, 05/27/2018, 05/22/2017, Additional history exists Breast Cancer Screening-Mammogram 06/24/2025 06/24/2024, 06/10/2023, 05/29/2022, Additional history exists Well Visit 65+ 02/01/2026 02/01/2025, 09/12, 04/03/2021, Additional history exists DTaP/Tdap/Td Vaccine (3 - Td or Tdap) 02/18/2029 02/18/2019, 02/18/2019 Zoster Vaccine Completed 08/18/2018, 04/28/2018 Medical Devices Implanted Type Area Chief Fundraising Officer Device Identifier Shelf Expiration Date Model / Serial / Lot [employer] Ssm-310 Natrelle Inspira Smooth Shell Surface Moderate Profile Implant Latex Free - [id number] - [id number] Implanted:Qty: 1 on 06/17/2020 by Krystle Corea MD at [facility] Left: Breast [employer] 10/30/2023 SSM-310 / [id number] / Rt Shoulder Pinning Implanted:01/14 (Quantity not on file) Right: Shoulder [employer] Trimark Mri Guided Rigid Deployment Device Cork Marker Breast Trimark Td 13-Mr - [id number] Implanted:Qty: 1 on 01/22/2025 at [facility] Right: Breast [employer] [id number] 02/11/2026 TRIMARK TD 13-MR / / [id number] Explanted Type Area Chief Fundraising Officer Device Identifier Shelf Expiration Date Model / Serial / Lot Breast Explanted:Qty: 1 on 06/17/2020 by Krystle Corea MD at [facility] Left: Breast [employer] / [id number] / [id number] P Procedures Procedure Name Priority Date/Time Associated Diagnosis Comments US PELVIS W ENDOVAGINAL Schedule Routine, Read Routine (OP Routine) 01/25/2025 3:13 PM CDT Pelvic pain CAMERON POST CLIP PLACEMENT RIGHT Schedule Routine, Read Routine (OP Routine) 01/22/2025 10:28 AM CDT Abnormal MRI, breast History of breast cancer MRI GUIDED BREAST BIOPSY RIGHT Schedule Routine, Read Routine (OP Routine) 01/22/2025 10:06 AM CDT Abnormal MRI, breast History of breast cancer SURGICAL PATHOLOGY Routine 01/22/2025 9: 46 AM CDT Abnormal MRI, breast History of breast cancer MRI BREAST BILATERAL W WO CONTRAST Schedule Routine, Read Routine (OP Routine) 01/06/2025 7:39 AM CDT Encounter for screening mammogram for malignant neoplasm of breast At high risk for breast cancer SCREENING MAMMOGRAM RIGHT W ACMERON UNILATERAL ONLY Schedule Routine, Read Routine (OP Routine) 06/24/2024 11:41 AM DISABILITY INSURANCE CLAIM EXAMINER Encounter for screening mammogram for malignant neoplasm of breast History of malignant neoplasm of breast DEXA AXIAL SKELETON BONE DENSITY 1 OR MORE SITES Schedule Routine, Read Routine (OP Routine) 10/05/2022 3:31 PM CDT Osteopenia, unspecified location Unspecified menopausal and perimenopausal disorder from Last 3 Months or Most Recently Relevant to Health Maintenance Results * US Pelvis W Endovaginal (01/25/2025 3:13 PM CDT) Endometrial Thickness 2.5 mm&millime ters VIEWPOINT Anatomical Region Laterality Modality Pelvis N/A Ultrasound 01/25/2025 3:27 PM CDT Impressions 01/29/2025 9:01 AM CDT Small anteverted uterus with 3 small fibroids noted, largest 1.1 cm in size. Endometrial stripe appropriate for postmenopausal woman. Bilateral adnexa normal. No free fluid. Narrative Procedure Note Angelique Tabares MD - 01/29/2025 IMPRESSION: Small anteverted uterus with 3 small fibroids noted, largest 1.1 cm insize. Endometrial stripe appropriate for postmenopausal woman. Bilateral adnexanormal. No free fluid. us Angelique Tabares MD [facility] US PROCEDURES Final R esult * Cameron Post Clip Placement Right (01/22/2025 [...] will be discussed with the patient by [facility] or referring provider staff and [...] fellow) and Dr. Yariel Sylvester MD (diagnostic assistant professor of radiology) also participated in this examination. us Kaylyn Russell SHAFT HEADMAN IMG MAMMO PROCEDURES Ed ited Result - [...] will be discussed with the patient by [facility] or referring provider staff and [...] fellow) and Dr. Yariel Sylvester MD (diagnostic assistant professor of radiology) also participated in this examination. Kaylyn Russell NP IMG MRI PROCEDURES Edit ed Result - Final * Surgical pathology (01/22/2025 9:46 AM CDT) Tissue (Breast biopsy, needle core) 01/22/2025 9:46 AM CDT Narrative PATHOLOGY [facility] - 01/25/2025 1:01 PM CDT EPIC results best viewed via link to PDF [facility] Delia M[facility] Laboratory of Surgical Pathology [place] [address] Note to Patients: This report may contain [...] Gender: F : 1955 (Age: 69) Address: [address] [place] [phone] Hospital #: [id number] Taken:01/22/2025 Received:01/22/2025 Reported: 01/25/2025 Patient Type: [facility] Ancillary Service: UNKNOWN Location: Physician(s): CHINA Lewis Marcial Ping Perla M.D. Diagnosis: Breast, right, central upper, MRI-guided biopsy - Breast tissue with prominent vasculature and organizing hemorrhage - No atypical or malignant findings [facility]/01/24/2025 11:54 By this signature, I attest that [...] after collection. Total fixation time= 8.0 hours. [facility]/01/22/2025 11:50 PA(s): Sheila Garcia By this signature, I attest that the above diagnosis is based upon my personal examination of the slides(and/or other material). Addenda/Procedures The performance characteristics of some immunohistochemical stains, fluorescence in-situ hybridization tests and immunophenotyping by flow cytometry cited in this report (if any) were determined by the Surgical Pathology and Flow Cytometry Departments at [facility] as part of an ongoing senior quality assurance analyst program and in compliance with federally mandated [...] Surgical Pathology and Flow Cytometry Departments of [facility]. It has not been cleared or approved by the U. S. Food and Drug Administration. IMAGES AND SCANNED DOCUMENTS, IF INCLUDED, ONLY VIEWABLE IN PDF VERSION OF REPORT us Kaylyn Russell NP LAB PATHOLOGY ORDERABLE S Final Result PATHOLOGY [facility] 3rd Floor [place], [place] [phone] * (ABNORMAL) MRI Breast Bilateral W WO [...] portions of either axilla. Negar Delgado NP [facility] MRI PROCEDURES Final Resul t * Screening Mammogram Right W Cameron Unilateral Only (06/24/2024 11:41 AM DISABILITY INSURANCE CLAIM EXAMINER) Anatomical Region Laterality Modality Breast Right Mammography Narrative 06/25/2024 11:39 AM DISABILITY INSURANCE CLAIM EXAMINER Mammogram Technique: Right Breast Digital Breast Tomosynthesis, Unilateral C-view 2D Screening mammogram. Views obtained: right craniocaudal and right mediolateral oblique. Computer Aided Detection was performed. Mammogram Findings: The present examination has been compared to prior imaging studies performed at [facility] on 05/23/2021, 05/29/2022 and 06/10/2023. There are [...] compared to prior imaging studies performed at [facility] on 05/23/2021, 05/29/2022 and 06/10/2023. There are [...] F with given history of screening. Postmenopausal Chief Fundraising Officer/Model: [employer] A (S/N [id number]) CLINICAL INFORMATION: Current height: 64 inches Maximum [...] Felipe Montana M.D. MF: [place] Report ID: [id number] Reading Location: [place] [address] Procedure Note Felipe Montana MD - 10/06/2022 EXAM DESCRIPTION: DEXA AXIAL SKELETON BONE DENSITY 1 OR MORE SITES REASON FOR STUDY: 67 y/o year old F with given history of screening. Postmenopausal Chief Fundraising Officer/Model: [employer] A (S/N [id number]) CLINICAL INFORMATION: Current height: 64 inches Maximum [...] Felipe Montana M.D. MF: [place] Report ID: [id number] Reading Location: [id number] Angelique Tabares MD IMG DXA PROCEDURES Final Result from Last 3 Months or Most Recently Relevant to Health Maintenance Insurance [facility] OPEN ACCESS MEDICARE AARP [facility] AARP Care Teams Visual Stylist Relationship Specialty Start Date End Date Marcial Ford MD PCP - General 07/29/20 Angelique Tabares MD [address] [place] [address] Printer Assistant Obstetrics and Gynecology 10/05/22
--- OUTSIDE RECORDS SUMMARY | 2025-03-05 08:09 | XMS_ITS | Encounter Summary ---
Author Organization [facility] Address [address] [place] [address] Care Team Providers Care District Extension Service Agent Name Role Phone Unavailable Primary Care Provider Unavailabl e Reason for Visit * Reason Onset Date Comments MEDICATION REFILL 10/25/2022 Encounter Details Date Type Department Care Team (Late st Contact Info) Description 10/25/2022 Refill [facility] Dermat[facility] [address] [facility], [place] [phone] Katherin Cruz MD [address] [facility] [address] [place] [address] MEDICATION REFILL Social History Tobacco Use Types [...]
--- OUTSIDE RECORDS SUMMARY | 2025-03-05 08:09 | XMS_ITS | Encounter Summary ---
Author Organization [facility] Address [address] [facility] [address] [address] Care Team Providers Care Bottle Sorter Name Role Phone Unavailable Primary Care Provider Unavailabl e Encounter Details Date Type Department Care Team (Late st Contact Info) Description 02/27/2024 Lab Requisition [facility] - DermPath Lab [address] [facility], [facility] [place] [address] Katherin Cruz MD [address] [facility] 3 [place] [address] Social History Tobacco Use Types Packs/Day Years [...] AM CDT) Case Report Dermatopathology Report Case: [id number] Authorizing Provider: Katherin Cruz MD Collected: 02/27/2024 08:52 AM Ordering Location: [facility] Physician [facility] - Received: 02/28/2024 07:06 AM DermPath Lab Pathologist: Eufemia Yung MD Specimen: Skin, mid forehead 11:28 AM CDT DERMATOPATHOLOGY LABORATORY Final Diagnosis Specimen A. SKIN, mid forehead: BASAL CELL CARCINOMA, INFILTRATIVE PATTERN (C44.319) 11:28 AM CDT DERMATOPATHOLOGY LABORATORY at 1128 CDT Clinical History [place] papule r/o BCC 11:28 AM CDT DERMATOPATHOLOGY [...] characteristic determined by the Dermatopathology Laboratory at [facility], directed by Dr. Kena Francis. These tests need not be, and therefore are not, approved by the [place] Food and Drug Administration. The tests are used for clinical purposes. Billing Codes Specimen Charges Stain Charges 35336 1 4 11:28 AM CDT DERMATOPATHOLOGY LABORATORY Embedded Images 11:28 AM CDT DERMATOPATHOLOGY LABORATORY Pathology/Cytolo gy TISSUE SPECIMEN FROM SKIN / Unknown 02/27/2024 8:52 AM CDT 02/28/2024 7:06 AM CDT us Katherin Cruz MD LAB - PATHOLOGY/CYTOLOGY ORD ERABLES Final Result DERMATOPATHOLOGY LABORATORY [facility] - Department of Dermatology [address], 3rd Floor [address] [phone] documented in this encounter Visit Diagnoses Not on filedocumented in this encounter
--- OUTSIDE RECORDS SUMMARY | 2025-03-05 08:09 | XMS_ITS | Clinical Summary ---
Author Organization [facility] Address [facility] [place] [address] Care Team Providers Care Glazier Artist Name Role Phone Marcial Ford MD Primary Care Provider [phone] Allergies Active Allergy Reactions Criticality Noted Date [...] this topic Meningococcal Vaccine Aged Out No naayn júnior eligible based on patient's age to complete this topic RSV Immunizations Under 20 Months Aged Out No longer eligible based on patient's age to complete this topic Insurance [facility]ARE [facility] Care Teams Glazier Artist Relationship Specialty Start Date End Date Marcial Ford MD [address] [address] PCP - General FAMILY PRACTICE 10/15/24
--- OUTSIDE RECORDS SUMMARY | 2025-03-05 08:09 | XMS_ITS | Clinical Summary ---
Author Organization [facility] Address [address] [place] [address] Care Team Providers Care Shipping/Receiving Manager Name Role Phone Unavailable Primary Care Provider Unavailabl e Source Comments [facility],non-owned Affiliates and Associated Physician Practices is amultiple site organization consisting of ambulatory clinics and hospital sitesin [place], [place], [place] and [place]. This disclosure is being madepursuant to the Care Everywhere program and may not contain all information available regarding this patient. Last updated 18.[facility] Social History Tobacco Use Types Packs/Day Years [...] age to complete this topic Insurance MEDICARE [facility] MEDICARE [facility]
--- OUTSIDE RECORDS SUMMARY | 2025-03-05 08:09 | XMS_ITS | Encounter Summary ---
Author Organization [facility] Address [address] [facility] [place] [address] Care Team Providers Care Cinnamon Grinder Name Role Phone Unavailable Primary Care Provider Unavailabl e Encounter Details Date Type Department Care Team (Late st Contact Info) Description 06/24/2019 Lab Requisition [facility] DermPath Lab [address] [facility], [place] [phone] Katherin Cruz MD [address] [facility] [address] [place] [address] Social History Tobacco Use Types Packs/Day Years [...] Comments DERMATOPATHOLOGY Routine 06/24/2019 12:0 0 AM YIELD CLERK documented in this encounter Results * DERMATOPATHOLOGY (06/24/2019 12:00 AM YIELD CLERK) Case Report Dermatopathology Report Case: [id number] Authorizing Provider: Katherin Cruz MD Collected: 06/24/2019 12:00 AM Ordering Location: [facility] DermPath Lab Received: 06/24/2019 11:04 AM Pathologist: Karsten Francis MD Specimen: Skin, left shoulder 9 1:45 PM YIELD CLERK DERMATOPATHOLOGY LABORATORY Final Diagnosis Specimen A. SKIN, left shoulder: LICHEN PLANUS-LIKE KERATOSIS (BENIGN LICHENOID KERATOSIS) (L82.1) POST-INFLAMMATORY PIGMENT ALTERATION (L81.9) 9 1:45 PM YIELD CLERK DERMATOPATHOLOGY LABORATORY at 1345 YIELD CLERK Clinical History R/O BCC, melanoma, LPLK. [place] brown papule. 1:45 PM YIELD CLERK DERMATOPATHOLOGY LABORATORY Gross Description Specimen A: Received is one formalin filled container labeled with the patient's name and designated left shoulder. The specimen consists of a shave measuring [id number]. Jar 0. 1:45 PM [facility] DERMATOPATHOLOGY LABORATORY Microscopic Description Specimen A. SKIN, left shoulder: The epidermis is mildly acanthotic. There is a lichenoid infiltrate with vacuolar changes of basilar keratinocytes and scattered necrotic keratinocytes. Sections show abundant melanin within melanophages around the superficial vascular plexus. 1:45 PM YIELD CLERK DERMATOPATHOLOGY LABORATORY Disclaimer An external and internal positive and negative controls are appropriate for the histochemical, immunohistochemical and immunofluorescence stain(s) in this case (if any), except where stated explicitly. The performance characteristics of the stain(s) cited in this report were developed and its performance characteristic determined by the Dermatopathology Laboratory at [facility], directed by Dr. Kena Francis. These tests need not be, and therefore are not, approved by the [place] Food and Drug Administration. The tests are used for clinical purposes. Billing Codes Specimen Charges Stain Charges 54549 1 1:45 PM YIELD CLERK DERMATOPATHOLOGY LABORATORY Embedded Images 1:45 PM YIELD CLERK DERMATOPATHOLOGY LABORATORY Pathology/Cytolog y TISSUE SPECIMEN FROM SKIN / Unknown 06/24/2019 06/24/2019 11:04 AM YIELD CLERK us Katherin Cruz MD LAB - PATHOLOGY/CYTOLOGY ORD ERABLES Final Result DERMATOPATHOLOGY LABORATORY [facility] - Department of Dermatology [address] [place] [address], 5th [place] [address], [facility] [place] [phone] documented in this encounter Visit Diagnoses Not on filedocumented in this encounter
--- OUTSIDE RECORDS SUMMARY | 2025-03-05 08:09 | XMS_ITS | Encounter Summary ---
Author Organization [facility] Address [address] [facility] [place] [address] Care Team Providers Care Telegraph Service Clerk Name Role Phone Unavailable Primary Care Provider Unavailabl e Encounter Details Date Type Department Care Team (Late st Contact Info) Description 02/14/2023 Lab Requisition [facility] - DermPath Lab [address] [facility], [place] [address] Katherin Cruz MD [address] [facility] 3 [place] [address] Social History Tobacco Use Types Packs/Day Years [...] PM CDT) Case Report Dermatopathology Report Case: [id number] Authorizing Provider: Katherin Cruz MD Collected: 02/14/2023 02:45 PM Ordering Location: [facility] DermPath Lab Received: 02/15/2023 11:43 AM [...] characteristic determined by the Dermatopathology Laboratory at [facility], directed by Dr. Kena Francis. These tests need not be, and therefore are not, approved by the [place] Food and Drug Administration. The tests are used for clinical purposes. Billing Codes Specimen Charges Stain Charges 27045 1 3 1:36 PM CDT DERMATOPATHOLOGY LABORATORY Embedded Images 3 1:36 PM CDT DERMATOPATHOLOGY LABORATORY Pathology/Cytolo gy TISSUE SPECIMEN FROM SKIN / Unknown 02/14/2023 2:45 PM CDT 02/15/2023 11:43 AM CDT us Katherin Cruz MD LAB - PATHOLOGY/CYTOLOGY ORD ERABLES Final Result DERMATOPATHOLOGY LABORATORY [facility] Department of Dermatology [address], [address]rd Floor [address] [phone] documented in this encounter Visit Diagnoses Not on filedocumented in this encounter
== END 2025-03-05 08:06 | disposition home or self-care (01) ==
LOC: ANHAUDIO 08:06
PROVIDERS: PCP Family Medicine; Visit Provider Nurse Practitioner Family
DX: H93.13 Tinnitus, bilateral (principal)
CPT/HCPCS: 92557; 92567

== ENCOUNTER 2025-04-01 13:10 | Outpatient (CLI) | payer MEDICARE, SELFPAY ==
--- NOTE | ~2025-04-01 | CT_ITS ---
EXAMINATION: CT abdomen pelvis wo/w con DATE: 04/01/2025 14:01 INDICATION: Right lower quadrant abdominal pain. Hematuria. TECHNIQUE: Computed tomography (CT) of the abdomen and pelvis was performed without and with intravenous contrast using a total of 130 mL Omnipaque-350 intravenous contrast with a double-bolus technique for simultaneous opacification of the renal parenchyma and renal collecting system. Automated exposure control and iterative reconstruction technique were employed. The dose- length product was 484.63 mGy-cm. COMPARISON: CT abdomen and pelvis 10/27/2015 FINDINGS: The visualized portions of the lung bases demonstrate mild atelectasis. No pleural effusion. The heart size is normal. No pericardial effusion. Breast implants are noted. The liver, gallbladder, spleen, pancreas, and adrenal glands are normal. There is no urolithiasis. There are cysts including peripelvic cysts in the kidneys measuring up to 2.1 cm on the left. The ureters are well opacified and are normal. The bladder is normal. There is diverticulosis of the colon without evidence of diverticulitis. The appendix is normal. There are no dilated loops of bowel. There are no pathologically enlarged lymph nodes. There is no free intraperitoneal fluid. There is mild lumbar spondylosis. IMPRESSION: 1. No etiology for the patient's symptoms. Reviewed, dictated and finalized at location E.
--- OUTSIDE RECORDS SUMMARY | 2025-04-01 09:30 | XMS_ITS | Encounter Summary ---
Author Organization [facility] Address [address] [place] [address] Phone Care Team Providers Care Screenplay Writer Name Role Phone Marcial Ford MD Primary Care Provider [phone] Angelique Tabares MD Unavailable [phone] Reason for Visit * Reason Comments Return Patient * Consultation (Routine) - Closed Specialty Diagnoses / Procedures Referred By Contac t Referred To Contact Plastic Surgery Diagnoses Follow-up exam Nilsa Naqvi MD [address] [facility] 5[address] [place] [address] Phone: tel: fax: Krystle Corea MD [address] [facility] [address] [place] [address] Phone: tel: fax: Referral ID Status Reason Start Date Expiration Date V isits Requested Visits Authorized [id number] Closed Specialty Services Required 10/02/2024 11/01/2025 1 1 Encounter Details Date Type Department Care Team (Latest Contact Info) Description 04/01/2025 9:30 AM CDT Office Visit [facility] Medicine Surgery [address] [facility] [address] [place] [phone] Krystle Corea MD [address] [place] [address] [place] [address] S/P breast reconstruction (Primary Dx) Social History Tobacco Use Types Packs/Day Years Used Date Smoking Tobacco: Never Smokeless Tobacco: Never Alcohol Use Standard Drinks/Week Comments Not Currently [...] on file Legal Sex Female 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 2012 left breast reconstruction with textured shaped Sientra silicone implant 06/17/20 Revision of left breast reconstruction with implant exchange pocket modification and multiple capsulotomies [facility] MRI 01/06 IMPRESSION: 1. Clumped mass and non-mass enhancement throughout the right breast spanning approximately 5 cm in craniocaudal dimension. The findings are of moderate suspicion for malignancy and MRI guided biopsy is recommended (targeting the most masslike 1.6 cm area in the upper slightly inner right breast). 2. Postsurgical changes of left mastectomy with intact silicone implant reconstruction. Biopsy was benign Ana Luisa is 12 years status post left mastectomy and reconstruction and 5 years status post revision. She is doing well with no complaints. She is not bothered by the asymmetry with the right samish breast. She recently had an abnormal right MRI and biopsy was benign. Surgical absence of left breast and nipple and reconstruction with soft silicone implants. No capsular contracture no malposition. No obvious fluid collection Overall she has a stable reconstruction. Because she still gets MRIs every year that should be sufficient to monitor the implant at this time. We also discussed the asymmetry with the samish breast if at some point this is to the degree that she is interested in surgery to correct that we can discuss options but at this time she is still comfortable with her reconstruction. documented in this encounter Plan of Treatment Not on file documented as of this encounter Visit Diagnoses Diagnosis S/P breast reconstruction- Primary Breast replaced by other means documented in this encounter Orders Outpatient Referral Count Last Ordered Date st Ordered Date AMB REFERRAL TO PLASTIC SURGERY 1 5 documented in this encounter Care Teams Screenplay Writer Relationship Specialty Start Date End Date Marcial Ford MD PCP - General 07/29/20 Angelique Tabares MD [address] [place] [address] Head Loft Worker Obstetrics and Gynecology 10/05/22 documented as of this encounter
--- OUTSIDE RECORDS SUMMARY | 2025-04-01 13:21 | XMS_ITS | Encounter Summary ---
Author Organization [facility] Address [address] [facility] [place] [address] Care Team Providers Care Consulting Technical Manager Name Role Phone Unavailable Primary Care Provider Unavailabl e Encounter Details Date Type Department Care Team (Late st Contact Info) Description 02/14/2023 Lab Requisition [facility] - DermPath Lab [address] [facility], [place] [address] Katherin Cruz MD [address] [facility] 3 [place] [address] Social History Tobacco Use Types Packs/Day Years [...] PM CDT) Case Report Dermatopathology Report Case: [id number] Authorizing Provider: Katherin Cruz MD Collected: 02/14/2023 02:45 PM Ordering Location: [facility] DermPath Lab Received: 02/15/2023 11:43 AM Pathologist: [...] characteristic determined by the Dermatopathology Laboratory at [facility], directed by Dr. Kena Francis. These tests need not be, and therefore are not, approved by the [place] Food and Drug Administration. The tests are used for clinical purposes. Billing Codes Specimen Charges Stain Charges 60127 1 3 1:36 PM CDT DERMATOPATHOLOGY LABORATORY Embedded Images 3 1:36 PM CDT DERMATOPATHOLOGY LABORATORY Pathology/Cytolo gy TISSUE SPECIMEN FROM SKIN / Unknown 02/14/2023 2:45 PM CDT 02/15/2023 11:43 AM CDT us Katherin Cruz MD LAB - PATHOLOGY/CYTOLOGY ORD ERABLES Final Result DERMATOPATHOLOGY LABORATORY [facility] Department of Dermatology [address], [address] [phone] documented in this encounter Visit Diagnoses Not on filedocumented in this encounter
--- OUTSIDE RECORDS SUMMARY | 2025-04-01 13:21 | XMS_ITS | Encounter Summary ---
Author Organization [facility] Address [address] [facility] [place] [address] Care Team Providers Care Crystal Evaluator Name Role Phone Unavailable Primary Care Provider Unavailabl e Encounter Details Date Type Department Care Team (Late st Contact Info) Description 02/27/2024 Lab Requisition [facility] - DermPath Lab [address] [facility] [place] [address] Katherin Cruz MD [address] [facility] 3 [place] [address] Social History Tobacco Use Types Packs/Day Years [...] AM CDT) Case Report Dermatopathology Report Case: [id number] Authorizing Provider: Katherin Cruz MD Collected: 02/27/2024 08:52 AM Ordering Location: [facility] - Received: 02/28/2024 07:06 AM DermPath Lab Pathologist: Eufemia Yung MD Specimen: Skin, mid forehead 11:28 AM CDT DERMATOPATHOLOGY LABORATORY Final Diagnosis Specimen A. SKIN, mid forehead: BASAL CELL CARCINOMA, INFILTRATIVE PATTERN (C44.319) 11:28 AM CDT DERMATOPATHOLOGY LABORATORY at 1128 CDT Clinical History [place] papule r/o BCC 11:28 AM CDT DERMATOPATHOLOGY [...] characteristic determined by the Dermatopathology Laboratory at [facility], directed by Dr. Kena Francis. These tests need not be, and therefore are not, approved by the [place] Food and Drug Administration. The tests are used for clinical purposes. Billing Codes Specimen Charges Stain Charges 71316 1 4 11:28 AM CDT DERMATOPATHOLOGY LABORATORY Embedded Images 11:28 AM CDT DERMATOPATHOLOGY LABORATORY Pathology/Cytolo gy TISSUE SPECIMEN FROM SKIN / Unknown 02/27/2024 8:52 AM CDT 02/28/2024 7:06 AM CDT us Katherin Cruz MD LAB - PATHOLOGY/CYTOLOGY ORD ERABLES Final Result DERMATOPATHOLOGY LABORATORY [facility] - Department of Dermatology [address], 3[address] Floor [address] [phone] documented in this encounter Visit Diagnoses Not on filedocumented in this encounter
--- OUTSIDE RECORDS SUMMARY | 2025-04-01 13:21 | XMS_ITS | Clinical Summary ---
Author Organization [facility] Address [address] [place] [address] Care Team Providers Care Gathering Machine Feeder Name Role Phone Marcial Ford MD Primary Care Provider [phone] Angelique Tabares MD Unavailable [phone] Allergies Active Allergy Reactions Criticality Noted Date [...] mg total) by mouth daily 5 Active Active Problems Problem Noted Date Diagnosed Date History of breast cancer 05/16/2020 Overview (05/16/2020): Added automatically from request for surgery [id number] History of bilateral breast implants 05/16/2020 Overview (05/16/2020): Added automatically from request for surgery [id number] Deformity of breast 05/16/2020 Overview (05/16/2020): Added automatically from request for surgery [id number] Osteopenia 02/01/2020 Enthesopathy of wrist and carpus [...] Encounters Date Type Department Care Team Description 04/01/2025 9:30 AM CDT Office Visit [facility] Medicine Surgery [address] [place] [address] [address] [place] [phone] Krystle Corea MD S/P breast reconstruction (Primary Dx) 02/05/[address] [facility] Obstetrical Gynecology [address] [place] [address] [place] [phone] Angelique Tabares MD Low bone mass (Primary Dx); Other specified disorders of bone density and structure, other site 02/01/2025 9:30 AM CDT Office Visit [facility] Obstetricri Gynecology [address] [place] [phone] Angelique Tabares MD Well woman exam with routine gynecological exam (Primary Dx); LLQ pain 01/25/2025 3:30 PM CDT Ancillary Procedure [facility] Obstetricri Gynecology [address] [place] [phone] Pelvic pain 01/25/2025 Results Follow-Up [facility] ([facility]) [address] [place] [address] Zully Richards RN Surgical pathology 01/22/2025 10:14 AM CDT - 01/22/2025 11:59 PM CDT Hospital Encounter [facility] Advanced Medicine Breast [facility] ([facility]) [address] [place] [address] Abnormal MRI, breast; History of breast cancer Discharge Disposition: Discharge to home or self care 01/22/2025 8:09 AM CDT - 01/22/2025 11:59 PM CDT Hospital Encounter [facility] Radiology [facility] ([facility]) [address] [place] [address] Abnormal MRI, breast; History of breast cancer Discharge Disposition: Discharge to home or self care 01/21/2025 Telephone [facility] Advanced Medicine [facility] ([facility]) [address] [place] [address] Estephania Aguirre RN 01/08/2025 Telephone [facility] Advanced Medicine [facility] ([facility]) [address] [place] [address] Estephania Aguirre RN 01/08/2025 Telephone [facility] Medicine Surgery [address] [facility] Floor 8 [place] [address] Kaylyn Russell NP Breast Screening MRI results 01/06/2025 6:38 AM CDT - 01/06/2025 11:59 PM CDT Hospital Encounter [facility] ([facility]) [address] [place] [address] Encounter for screening mammogram for malignant neoplasm of breast; At high risk for breast cancer Discharge Disposition: Discharge to home or self care 01/04/2025 Orders Only [facility] Obstetrical Gynecology [address] [place] [address] [place] [phone] Angelique Tabares MD Pelvic pain (Primary Dx) from Last 3 Months Immunizations Immunization Administration [...] on file Legal Sex Female 8:29 PM ORANGE PICKER Gender Identity Female 05/02/2020 5:05 PM CDT [...] AM CDT Pulse 93 06/17/2020 8:30 AM ORANGE PICKER Temperature 36.2 C (97.1 F) 07/18/2020 11:40 AM ORANGE PICKER Respiratory Rate 18 06/17/2020 8:30 AM ORANGE PICKER Oxygen Saturation 98% 06/17/2020 8:30 AM ORANGE PICKER Inhaled Oxygen Concentration - - Weight 58.8 kg (129 lb 9.6 oz) 02/01/2025 9:37 A M CDT Height 162.6 cm (5' 4) 02/01/2025 9:37 AM CDT Body Mass Index 22.25 02/01/2025 9:37 AM CDT Plan of Treatment Health Maintenance Due Date Last Done Comments Colon Cancer Screening-Colonoscopy 1955 Depression Screening 1955 Hepatitis C Screening 1955 Hepatitis B Screening 02/15/1974 Fall Risk Assessment 06/17/2021 06/17/2020 Osteoporosis Screening-Bone Density Scan 10/05/2024 10/05/2022, 05/11/2020, 08/22/2018, Additional history exists Influenza Vaccine (#1) 2025 , 04/18/2023, 05/27/2018, Additional history exists Breast Cancer Screening-Mammogram 06/24/2025 06/24/2024, 06/10/2023, 05/29/2022, Additional history exists Well Visit 65+ 02/01/2026 02/01/2025, 09/12, 04/03/2021, Additional history exists DTaP/Tdap/Td Vaccine (3 - Td or Tdap) 02/18/2029 02/18/2019, 02/18/2019 Zoster Vaccine Completed 08/18/2018, 04/28/2018 Pneumococcal vaccine 65+ Completed 07/04/2022, 02/2021 Medical Devices Implanted Type Area Tumor Registrar Device Identifier Shelf Expiration Date Model / Serial / Lot [employer] Ssm-310 Natrelle Inspira Smooth Shell Surface Moderate Profile Implant Latex Free - [id number] - [id number] Implanted:Qty: 1 on 06/17/2020 by Krystle Corea MD at [facility] Breast Left: Breast [employer] 10/30/2023 SSM-310 / [id number] / Rt Shoulder Pinning Implanted:01/14 (Quantity not on file) Right: Shoulder [employer] Trimark Mri Guided Rigid Deployment Device Cork Marker Breast Trimark Td 13-Mr - [id number] Implanted:Qty: 1 on 01/22/2025 at [facility] Right: Breast [employer] [id number] 02/11/2026 TRIMARK TD 13-MR / / [id number] Explanted Type Area Tumor Registrar Device Identifier Shelf Expiration Date Model / Serial / Lot Breast Explanted:Qty: 1 on 06/17/2020 by Krystle Corea MD at [facility] Breast Left: Breast Silimed / [id number] / [id number] Procedures Procedure Name Priority Date/Time Associated [...] Read Routine (OP Routine) 06/24/2024 11:41 AM ORANGE PICKER Encounter for screening mammogram for malignant neoplasm [...] No free fluid. us Angelique Tabares MD IMG US PROCEDURES Final R esult * Cameron [...] will be discussed with the patient by [facility] or referring provider staff and will [...] fellow) and Dr. Yariel Sylvester MD (diagnostic residential worker) also participated in this examination. us Kaylyn Russell NP IMG MAMMO PROCEDURES Ed ited Result - [...] will be discussed with the patient by [facility] or referring provider staff [...] fellow) and Dr. Yariel Sylvester MD (diagnostic residential worker) also participated in this examination. Kaylyn Russell NP IM MRI PROCEDURES Edit ed Result - Final * Surgical pathology (01/22/2025 9:46 AM CDT) Tissue (Breast biopsy, needle core) 01/22/2025 9:46 AM CDT Narrative PATHOLOGY [facility] - 01/25/2025 1:01 PM CDT EPIC results best viewed via link to PDF [facility] [place] [address] Note to Patients: This report may contain [...] Gender: F : 1955 (Age: 69) Address: [address] [place] [phone] Hospital #: [id number] Taken:01/22/2025 Received:01/22/2025 Reported: 01/25/2025 Patient Type: [facility] Ancillary Service: UNKNOWN Location: Physician(s): CHINA Lewis Marcial Ping Perla M.D. Diagnosis: Breast, right, central upper, MRI-guided biopsy - Breast tissue with prominent vasculature and organizing hemorrhage - No atypical or malignant findings [facility]/01/24/2025 11:54 By this signature, I attest that [...] after collection. Total fixation time= 8.0 hours. [facility]/01/22/2025 11:50 PA(s): Sheila Garcia By this signature, I attest that the above diagnosis is based upon my personal examination of the slides(and/or other material). Addenda/Procedures The performance characteristics of some immunohistochemical stains, fluorescence in-situ hybridization tests and immunophenotyping by flow cytometry cited in this report (if any) were determined by the Surgical Pathology and Flow Cytometry Departments at [facility] as part of an ongoing quality project manager program and in compliance with federally [...] Surgical Pathology and Flow Cytometry Departments of [facility]. It has not been cleared or approved by the U. S. Food and Drug Administration. IMAGES AND SCANNED DOCUMENTS, IF INCLUDED, ONLY VIEWABLE IN PDF VERSION OF REPORT us Kaylyn Russell NP LAB PATHOLOGY ORDERABLE S Final Result PATHOLOGY [facility] 3rd Floor [place], [place] [phone] * (ABNORMAL) MRI Breast Bilateral W WO [...] portions of either axilla. Negar Delgado NP [facility] MRI PROCEDURES Final Resul t * Screening Mammogram Right W Cameron Unilateral Only (06/24/2024 11:41 AM ORANGE PICKER) Anatomical Region Laterality Modality Breast Right Mammography Narrative 06/25/2024 11:39 AM ORANGE PICKER Mammogram Technique: Right Breast Digital Breast Tomosynthesis, Unilateral C-view 2D Screening mammogram. Views obtained: right craniocaudal and right mediolateral oblique. Computer Aided Detection was performed. Mammogram Findings: The present examination has been compared to prior imaging studies performed at [facility] on 05/23/2021, 05/29/2022 and 06/10/2023. There [...] compared to prior imaging studies performed at [facility] on 05/23/2021, 05/29/2022 and 06/10/2023. There [...] F with given history of screening. Postmenopausal Tumor Registrar/Model: Sn[employer]shot A (S/N [id number]) CLINICAL INFORMATION: Current height: 64 inches Maximum [...] Felipe Montana M.D. MF: [place] Report ID: [id number] Reading Location: [address] Note Felipe Montana MD - 10/06/2022 EXAM DESCRIPTION: DEXA AXIAL SKELETON BONE DENSITY 1 OR MORE SITES REASON FOR STUDY: 67 y/o year old F with given history of screening. Postmenopausal Tumor Registrar/Model: [employer] A (S/N [id number]) CLINICAL INFORMATION: Current height: 64 inches Maximum [...] Felipe Montana M.D. MF: [place] Report ID: [id number] Reading Location: [place] [address] nAgelique Tabares MD IMG DXA PROCEDURES Final Result from Last 3 Months or Most Recently Relevant to Health Maintenance Insurance [facility] OPEN ACCESS MEDICARE [facility] MEDICARE [facility] MEDICARE AARP Care Teams Gathering Machine Feeder Relationship Specialty Start Date End Date Marcial Ford MD PCP - General 07/29/20 Angelique Tabares MD [address] [place] [address] General Activities Therapist Obstetrics and Gynecology 10/05/22
--- OUTSIDE RECORDS SUMMARY | 2025-04-01 13:21 | XMS_ITS | Encounter Summary ---
Author Organization [facility] Address [address] [facility] [place] [address] Care Team Providers Care Security Monitor Name Role Phone Unavailable Primary Care Provider Unavailabl e Encounter Details Date Type Department Care Team (Late st Contact Info) Description 10/14/2018 Lab Requisition [facility] Care DermPath Lab [address] [facility] [place] [address] Katherin Cruz MD [address] [facility] 3 [place] [address] Social History Tobacco Use Types Packs/Day Years [...] AM CDT) Case Report Dermatopathology Report Case: [id number] Authorizing Provider: Katherin Cruz MD Collected: 10/13/2018 12:00 AM Pathologist: Eufemia Yung MD Received: 10/14/2018 06:21 AM Specimen: Skin, left buttock 9 2:20 PM CDT DERMATOPATHOLOGY LABORATORY Final Diagnosis Specimen A. SKIN, left buttock: SEBORRHEIC KERATOSIS, IRRITATED AND INFLAMED (L82.0) 9 2:20 PM CDT DERMATOPATHOLOGY LABORATORY at 1420 CDT Clinical History Thor crusted papule ISK vs VV vs SCCIS [...] characteristic determined by the Dermatopathology Laboratory at [facility], directed by Dr. Kena Francis. These tests need not be, and therefore are not, approved by the [place] Food and Drug Administration. The tests are used for clinical purposes. Billing Codes Specimen Charges Stain Charges 34132 1 2:20 PM CDT DERMATOPATHOLOGY LABORATORY Embedded Images 2:20 PM CDT DERMATOPATHOLOGY LABORATORY Pathology/Cytolog y TISSUE SPECIMEN FROM SKIN / Unknown 10/13/2018 10/14/2018 6:21 AM CDT us Katherin Cruz MD LAB - PATHOLOGY/CYTOLOGY ORD ERABLES Final Result DERMATOPATHOLOGY LABORATORY [facility] - Department of Dermatology [address] [place] [address], [address]th [place] [address], [place] [phone] documented in this encounter Visit Diagnoses Not on filedocumented in this encounter
--- OUTSIDE RECORDS SUMMARY | 2025-04-01 13:21 | XMS_ITS | Encounter Summary ---
Author Organization [facility] Address [address] [facility] [place] [address] Care Team Providers Care Ammonia Nitrate Operator Name Role Phone Unavailable Primary Care Provider Unavailabl e Reason for Visit * Reason Onset Date Comments MEDICATION REFILL 10/25/2022 Encounter Details Date Type Department Care Team (Late st Contact Info) Description 10/25/2022 Refill [facility] D[facility] [address] [facility], [place] [address] Katherin Cruz MD [address] [facility] 3 [place] [address] MEDICATION REFILL Social History Tobacco Use Types [...]
--- OUTSIDE RECORDS SUMMARY | 2025-04-01 13:21 | XMS_ITS | Clinical Summary ---
Author Organization [facility] Address [address] [place] [address] Care Team Providers Care Technology Teacher Name Role Phone Unavailable Primary Care Provider Unavailabl e Source Comments [facility] [employer],non-owned Affiliates and Associated Physician Practices is amultiple site organization consisting of ambulatory clinics and hospital sitesin [place], [place], [place] and [place]. This disclosure is being madepursuant to the Care Everywhere program and may not contain all information available regarding this patient. Last updated 18.[facility] Social History Tobacco Use Types Packs/Day Years [...] 02/15/2006 ZOSTER VACCINE (1 of 2) 02/15/2006 DEPRESSION SCREENING 07/15/2024 COVID-19 VACCINE (1 - 2023-2 5 season) 2025 INFLUENZA VACCINE (#1) 2025 Respiratory Syncytial Virus [...] age to complete this topic Insurance MEDICARE [facility] MEDICARE [facility]
--- OUTSIDE RECORDS SUMMARY | 2025-04-01 13:21 | XMS_ITS | Encounter Summary ---
Author Organization [facility] Address [address] [place] [address] Care Team Providers Care Seo Strategist Name Role Phone Unavailable Primary Care Provider Unavailabl e Reason for Visit * Reason Onset Date Comments MEDICATION REFILL 11/08/2022 Encounter Details Date Type Department Care Team (Late st Contact Info) Description 11/08/2022 Refill [facility] [address] [facility] [facility] [place] [id number] Katherin Cruz MD [address] [facility] [address] [place] [address] MEDICATION REFILL Social History Tobacco Use Types [...]
--- OUTSIDE RECORDS SUMMARY | 2025-04-01 13:21 | XMS_ITS | Encounter Summary ---
Author Organization [facility] Address [address] [place] [address] Care Team Providers Care Ranch Supervisor Name Role Phone Unavailable Primary Care Provider Unavailabl e Encounter Details Date Type Department Care Team (Late st Contact Info) Description 06/24/2019 Lab Requisition [facility] [address] [facility] [place] [id number] Katherin Cruz MD [address] [facility] [address] [place] [address] Social History Tobacco Use Types Packs/Day Years [...] Comments DERMATOPATHOLOGY Routine 06/24/2019 12:0 0 AM [facility] STEEP TENDER documented in this encounter Results * DERMATOPATHOLOGY (06/24/2019 12:00 AM [facility]EEP TENDER) Case Report Dermatopathology Report Case: [id number] Authorizing Provider: Katherin Cruz MD Collected: 06/24/2019 12:00 AM Ordering Location: [facility] Received: 06/24/2019 11:04 AM Pathologist: Karsten Francis MD Specimen: Skin, left shoulder 9 1:45 PM [facility] DERMATOPATHOLOGY LABORATORY Final Diagnosis Specimen A. SKIN, left shoulder: LICHEN PLANUS-LIKE KERATOSIS (BENIGN LICHENOID KERATOSIS) (L82.1) POST-INFLAMMATORY PIGMENT ALTERATION (L81.9) 9 1:45 PM [facility] DERMATOPATHOLOGY LABORATORY at [address] [facility] Clinical History R/O BCC, melanoma, LPLK. [place] brown papule. 1:45 PM [facility] DERMATOPATHOLOGY LABORATORY Gross Description Specimen A: Received is one formalin filled container labeled with the patient's name and designated left shoulder. The specimen consists of a shave measuring 8o3m0pf. Jar 0. 1:45 PM [facility] DERMATOP[facility]OLOGY LABORATORY Microscopic Description Specimen A. SKIN, left shoulder: The epidermis is mildly acanthotic. There is a lichenoid infiltrate with vacuolar changes of basilar keratinocytes and scattered necrotic keratinocytes. Sections show abundant melanin within melanophages around the superficial vascular plexus. 1:45 PM [facility] DERMATOPATHOLOGY LABORATORY Disclaimer An external and internal positive and negative controls are appropriate for the histochemical, immunohistochemical and immunofluorescence stain(s) in this case (if any), except where stated explicitly. The performance characteristics of the stain(s) cited in this report were developed and its performance characteristic determined by the Dermatopathology Laboratory at [facility], directed by Dr. Kena Francis. These tests need not be, and therefore are not, approved by the [place] Food and Drug Administration. The tests are used for clinical purposes. Billing Codes Specimen Charges Stain Charges 33726 1 1:45 PM [facility] DERMATOPATHOLOGY LABORATORY Embedded Images 1:45 PM [facility] DERMATOPATHOLOGY LABORATORY Pathology/Cytolog y TISSUE SPECIMEN FROM SKIN / Unknown 06/24/2019 06/24/2019 11:04 AM TOP STEEP TENDER us Katherin Cruz MD LAB - PATHOLOGY/CYTOLOGY ORD ERABLES Final Result DERMATOPATHOLOGY LABORATORY [facility] - Department of Dermatology [address] [place] [address], [address] [place] [address], [facility] [phone] documented in this encounter Visit Diagnoses Not on filedocumented in this encounter
[2025-04-01 13:41] LABS: Estimated Glomerular Filt Rate > 60
== END 2025-04-01 13:11 | disposition home or self-care (01) ==
PROVIDERS: PCP Family Medicine; Visit Provider Physician Assistant Medical
DX: R10.31 Right lower quadrant pain (principal); R10.32 Left lower quadrant pain; G89.29 Other chronic pain; R31.9 Hematuria, unspecified
CPT/HCPCS: 74178; Q9967